=== PATIENT | female | born 1970 | race Caucasian/White ===

== ENCOUNTER → 2023-09-30 10:24 | Outpatient (CLI) | payer BC, SELFPAY ==
--- NOTE | 2023-09-30 10:25 | US_ITS ---
PROCEDURE: US TRANSVAGINAL CLINICAL INDICATION: Abnormal Bleeding COMPARISON: No exams were available for comparison FINDINGS: Transvaginal sonographic images of the pelvis were obtained. UTERUS: 8.4cm x 4.7cmx 4.1cm with a combined endometrial thickness of 7.1mm. Left subserosal fibroid measuring 0.9 cm x 1.4 cm x 0.8 cm. There are several small nabothian cysts in the cervix. LEFT OVARY: 1.8cmx1.6cmx1.4cm with a volume of 2.1ml. RIGHT OVARY: 1.8cmx 1.5cmx1.1cm with a volume of 1.5ml. Both ovaries are seen and appear normal. Doppler flow to both ovaries are seen. There is no fluid in the cul-de-sac. IMPRESSION: 1. Difficult examination. 2. Anteverted uterus normal in shape and size. The endometrium measures 7.1 mm. 3. There is a small 1.4 cm subserosal fibroid on the left side. 4. Both left and right ovaries are seen and appear normal. 5. No fluid in the cul-de-sac. Dictated by: Raymond Guardado MD 10/02/2023 08:52 Raymond Guardado MD in OV 10/02/2023 08:52
== END ==
PROVIDERS: PCP Family Medicine; Visit Provider Obstetrics & Gynecology
DX: N92.0 Excessive and frequent menstruation with regular cycle (principal); N94.6 Dysmenorrhea, unspecified
CPT/HCPCS: 76830

== ENCOUNTER 2023-10-31 09:24 | Outpatient (CLI) | payer BC, SELFPAY ==
[2023-10-31 09:46] LABS: Basophils # 0.1 K/mm3 (0-0.2); Basophils % 0.9 % (0.1-2.0); Eosinophils # 0.1 K/mm3 (0.0-0.4); Eosinophils % 1.8 % (0.1-12.0); Hematocrit 43.9 % (37.0-47.0); Hemoglobin 14.9 g/dL (12.2-16.2); Lymphocytes # 2.7 K/mm3 (0.7-4.5); Lymphocytes % 34.1 % (10-50); Mean Corpuscular Hemoglobin 29.7 pg (27.0-31.2); Mean Corpuscular Volume 87.2 fl (81-99); Mean Platelet Volume 7.6 fl (7.4-10.4); Monocytes # 0.5 K/mm3 (0.1-1.0); Monocytes % 5.8 % (1.7-9.3); Neutrophils # 4.6 K/mm3 (1.8-7.8); Neutrophils % 57.4 % (37.0-80.0); Platelet Count 265 K/mm3 (142-424); Red Blood Count 5.04 M/mm3 (4.20-5.40)
[2023-10-31 10:22] LABS: Alanine Aminotransferase 27 U/L (12-78); Albumin Level 4.6 g/dl (3.5-5.0); Albumin/Globulin Ratio 1.7 (1.1-1.8); Alkaline Phosphatase 37 U/L (38-126); Aspartate Amino Transferase 27 U/L (14-36); Bilirubin,Total 0.4 mg/dl (0.2-1.3); Blood Urea Nitrogen 15 mg/dl (7-17); Calcium 8.8 mg/dl (8.4-10.2); Carbon Dioxide 25 mmol/L (22.0-30.0); Chloride 106 mmol/L (98-107); Estimated Glomerular Filt Rate 76 ml/min (>60); GFR (African American) 92 ML/MIN (>60); Globulin 2.7 g/dL (1.3-3.2); Glucose 109 mg/dl (74-100); Sodium 140 mmol/L (136-145); Total Protein,Serum 7.3 g/dl (6.3-8.2)
== END 2023-10-31 23:59 ==
LOC: LAB 09:25
PROVIDERS: PCP Family Medicine; Visit Provider Obstetrics & Gynecology
DX: N93.9 Abnormal uterine and vaginal bleeding, unspecified (principal)
CPT/HCPCS: 36415; 80053; 85025

== ENCOUNTER 2023-11-03 06:02 | Day surgery (SDC) | payer BC, SELFPAY ==
[2023-10-31 13:21] VITALS: BMI 34.0
[2023-11-03] VITALS (9 sets, daily range): BP systolic 128–166; BP diastolic 78–94; PULSE 65–74; RESP 18–21; TEMP 36.2–36.8; O2SAT 92–100
[2023-11-03] MEDS: ACETAMINOPHEN 500MG TAB 1000 MG PO (06:35)
[2023-11-03] MEDS: LACTATED RINGERS 1000ML 1,000 ML 25 ML IV (06:35)
[2023-11-03 06:44] LABS: HCG Qualitative, Serum Negative (Negative)
--- NOTE | 2023-11-03 07:14 | P.PNANES_ITS ---
[facility] Disclaimer: The information contained in this section may have been updated after the patient was seen, as this information can be updated by other users. Medical History Abnormal uterine bleeding High cholesterol Severe dysmenorrhea NINA (stress urinary incontinence, female) Surgical History H/O section H/O LEEP History of salpingectomy History of tubal ligation Family History Other Cancer Diabetes Hyperlipidemia Hypertension Stroke Social History Smoking Status: Never smoker alcohol intake: never substance use type: denies use current occupational status: unemployed Travel in the last 8 weeks: None household members: spouse housing: house caffeine: Yes [facility] Anesthesia Checklist Patient Identification Patient Identification: Arm Band and Verbal (Name & ) Structural Data Admitted From: Home Planned Operative Procedure/s: D & C, hyst, Novasure Consent for Planned Operative Procedure(s) Verified: Yes NPO Status Verified Time NPO: 00:00 Additional verifications Anesthesia Reactions: No Hx Blood Transfusions: No Blood Transfusion Reaction: No Airway Assessment Mallampati Score:: Class III C-Spine Mobility Assessed: Yes TMJ Mobility Assessed: Yes Dentition: Good Dentition Neurological Assessment Level of Consciousness: Awake Hx Seizures: No Numbness or tingling in extremities: No Anesthesia Plan Anesthesia Risk discussed: Yes Anesthesia Plan: Verified ASA Class: II Anesthesia Type: General
--- NOTE | 2023-11-03 08:02 | EXP.ANES.I ---
[facility] Anesthesia Record Part I Anesthesia Record I Intake, IV Amount: 500 Hydration: Adequate Estimated blood loss (mL): 5 Urine output (mL): 25 Blood Pressure: 128/78 SaO2: 92 Pulse Rate: 65 Airway Patency: Patent Respiratory Rate: 21 Temperature: 98.3 F Patient is:: Drowsy and Oral/Nasal airway Stable to PACU at:: 08:00
--- NOTE | 2023-11-03 08:19 | P.OP_ITS ---
Date of procedure: 11/03/23 Pre-op Diagnosis:: 1. Abnormal uterine bleeding Post-op Diagnosis:: 1. Abnormal uterine bleeding Procedure performed:: Hysteroscopy, D&C, Novasure endometrial ablation Surgeon:: Helen Horne DO Manager Rehab(s):: N/a CARGO MATE:: Esperanza Dalton Anesthesia: GETA Estimated blood loss (mL): 5 Clinical Note:: Pricilla Carlin is a very pleasant 53 yo P2010 who presents for preop visit. She complains of abnormal uterine bleeding. She is currently taking combined OCP. She admits she stopped OCP in 2022 because she wanted to get off of hormones at age 53. However, she experienced heavy, prolonged bleeding and restarted OCP. She reports periods are regular on OCP. She admits hot flashes and night sweats are present but getting better. She is afraid to stop OCP because of heavy bleeding and quality of life. She has history of tubal ligation. Pelvic ultrasound 09/30/23 demonstrated anteverted uterus normal in shape and size. The endometrium measured 7.1 mm. A small 1.4 cm subserosal fibroid on the left side. Both left and right ovaries are seen and appear normal. No fluid in the cul-de-sac. Operative findings:: 1. On bimanual exam, uterus midposition, normal size and shape. No adnexal masses palpated 2. On hysteroscopic exam, bilateral tubal ostia easily visualized. Grossly normal appearing endometrial tissue. No masses or polyps. Operative note:: Risks, benefits and alternatives were discussed with the patient. Risks include but are not limited to bleeding, infection, uterine perforation and VTE. Patient voiced understanding and agreed to proceed. She was wheeled back to the operating room and placed under general anesthesia without difficulty. She was placed in dorsal lithotomy position and prepped and draped in the normal sterile fashion. A bimanual exam was performed. A weighted Auvard was placed in the vaginal vault. Single tooth tenaculum was placed on anterior lip of the cervix. Uterus sounded to 7. Sequential Larry dilators were used to dilate the cervical os. Hysteroscope was tested inserted through the cervix without difficulty. Endometrial cavity was evaluated. See findings above. Pictures were taken. Hysteroscope was removed. Medium size sharp curette was inserted through the cervix into the uterine cavity. The endometrial cavity was curetted with a systematic [id number] movement of the curette so that all possible endometrium was sampled. Endometrial curettings will be sent to pathology for review. Novasure sure sound was used to obtain uterine length. Uterus measured 4.0 cm in length and 4.5 cm in cavity width. Novasure deviced was inserted and ablation was performed per protocol at a power of 99 w for 88 seconds. Novasure device was removed. Hysteroscope was reinserted and cavity revealed adequate burn and no uterine perforation. Hysteroscope was removed. Instruments were removed from the vagina. Tenaculum site with small amount of oozing. Silver nitrate applied with continued oozing. 2-0 Chromic suture used to ligate tenaculum sites. Hemostasis noted. Patient was awaken from anesthesia without difficulty. She was transported to recovery room in stable condition. Patient will be discharged home when awake and ambulating. She was given postop instructions as well as instructions to follow-up in the office in 2 weeks at which time pathology will be reviewed. Condition: stable Disposition: same day Specimens:: 1. Endometrial curettings Complications:: None
--- NOTE | 2023-11-03 08:56 | SUR.PHASEI ---
removed patients oral airway @ 0810 pt tolerated well No bleeding noted vaginally.
--- NOTE | 2023-11-04 08:58 | P.PNANES_ITS ---
[facility] Anesthesia Record Part II Anesthesia Record Part II Discharge Time: 08:30 Destination: Surgical Day Care (OP Surgery) PACU nurse assessment reviewed?: Yes Patient Condition:: Good Anesthesia Complications:: None Swallowing reflex intact?: Yes Airway Patency: Patent Cyanosis?: No Blood Pressure: 157/80 SaO2: 97 Respiratory Rate: 18 Pulse Rate: 74 Temperature: 97.8 F Mental Status: Alert & Oriented Pain level:: 0 Nausea and/or vomitting:: None Intake, IV Amount: 0 Hydration: Adequate
[2023-11-04 08:59] VITALS: BP 157/80; PULSE 74; RESP 18; TEMP 36.6; O2SAT 97
== END 2023-11-03 09:01 | disposition home or self-care (01) ==
PROVIDERS: PCP Family Medicine; Visit Provider Obstetrics & Gynecology
PROC: (CPT 58563; principal; 2023-11-03 07:30)
DX: N93.9 Abnormal uterine and vaginal bleeding, unspecified (principal); Z98.51 Tubal ligation status; N84.0 Polyp of corpus uteri
CPT/HCPCS: 58563; 84703; J2405

== ENCOUNTER 2025-04-12 09:38 | Outpatient (CLI) | payer BC, SELFPAY ==
--- OUTSIDE RECORDS SUMMARY | 2025-02-25 12:29 | XMS_ITS | Encounter Summary ---
Author Organization [place] [address] Care Team Providers Care Manager Division Name Role Phone Corrie Rodriguez MD Unavailable Traci Camacho DO Primary Care Provider + [phone] Reason for Visit * Reason Comments Abdominal Pain RLQ abd pain. Interm ittent. +diarrhea Radiates down to groin area. Moves. Increased urinary frequency. Encounter Details Date Type Department Care Team (Late st Contact Info) Description 02/25/2025 12:29 PM EDT - 02/25/2025 1:47 PM EDT Emergency [facility] Emergency [address] [place] [id number] Aakash Altman MD [address] [place] [id number] Acute cystitis without hematuria (Primary Dx); Loose stools Discharge Disposition: Home or Self Care Social History Tobacco Use Types Packs/Day Years Used Date Smoking Tobacco: Never Smokeless Tobacco: Never Alcohol Use Standard Drinks/Week Comments No 0 (1 standard drink = 0.6 oz pur e alcohol) PHQ-2 Answer Date Recorded PHQ-2 Total Score 0 01/23/2025 Sexually Active Control Partners Comments Yes OCP Male Comments No Sex and Gender Information Value Date Recorded Sex Assigned at Not on file Legal Sex Female 1:03 PM EDT Gender Identity Not on file Sexual Orientation Not on file documented as of this encounter Last Filed Vital Signs Vital Sign Reading Time Taken Comments Blood Pressure 127/60 02/25/2025 12:20 PM EDT Pulse 74 02/25/2025 12:20 PM EDT Temperature 36.6 C (97.9 F) 02/25/2025 12:20 PM EDT Respiratory Rate 18 02/25/2025 12:20 PM EDT Oxygen Saturation 99% 02/25/2025 12:20 PM EDT Inhaled Oxygen Concentration - - Weight - - Height - - Body Mass Index - - documented in this encounter Functional Status * Is the person deaf or does he/she have serious difficulty hearing? Answer Date of Assessment Author No 01/02/2021 8:07 AM EDT Doris Shafer RMA * Is the person blind or does he/she have serious difficulty seeing even when wearing glasses? Answer Date of Assessment Author No 01/02/2021 8:07 AM EDT Doris Shafer RMA * Does this person have serious difficulty walking or climbing stairs? Answer Date of Assessment Author No 01/02/2021 8:07 AM EDT Doris Shafer RMA * Does this person have difficulty dressing or bathing? Answer Date of Assessment Author No 01/02/2021 8:07 AM EDT Doris Shafer RMA * Because of a physical, mental or emotional condition, does this person have difficulty doing errands alone such as visiting a doctor's office or shopping? Answer Date of Assessment Author No 01/02/2021 8:07 AM EDT Doris Shafer RMA * Suicide Severity Rating Answer Date of Assessment Author No Risk 02/25/2025 12:22 PM EDT Oni Ovalle RN * [place] Suicide Severity Rating Scale (Q shift for moderate and high) Question Answer Date of Assessment Author 1. In the past month, have y ou wished you were or wished you could go to sleep and not wake up? 0 02/25/2025 12:22 PM EDT Ana Maria Ovalle RN 2. In the past month, have y ou actually had any thoughts of killing yourself? (If no, skip to question 6) 0 02/25/2025 12:22 PM EDT Ana Maria Ovalle RN 6. Have you ever done anything, started to do anything, or prepared to do anything to end your life? 0 02/25/2025 12:22 PM EDT Tricia Ovalle RN documented as of this encounter Mental Status * Because of a physical, mental or emotional condition, does this person have serious difficulty concentrating, remembering or making decisions? Answer Entry Date Author No 01/02/2021 8:07 AM EDT Doris Shafer RMA documented in this encounter Discharge Instructions * Discharge Instructions* Aakash Altman MD - 02/25/2025 1:36 PM EDT Take plenty of fluid Take all antibiotics as prescribed Contact your primary care physician or referral physician for follow up in 2-3 days. Return for reevaluation if persistent fever, vomiting or worsening of symptoms documented in this encounter Medications at Time of Discharge CALCIUM-VITAMIN D3 ORALIndications:Radha min D deficiency Take 1 Tab by mouth daily. cetirizine (ZYRTEC) 10 mg Oral Tablet Take 10 mg by mouth daily. cyanocobalamin 1,000 mcg Oral Tablet Take 1,000 mcg by mouth daily. nitrofurantoin, macrocrystal-monohyd rate, (MACROBID) 100 mg Oral Capsule Take 1 Capsule by mouth 2 times daily for 5 days. 10 Capsule 02/25/2025 5 rosuvastatin (CRESTOR) 5 mg Oral TabletIndications:Hy perlipidemia, unspecified hyperlipidemia type,Hyperlipidemia with target LDL less than 100 TAKE 1 TABLET BY MOUTH EVERY DAY AT NIGHT 100 Tablet 12/12/2024 5 documented as of this encounter Ordered Prescriptions Prescription Sig Dispense Quantity Refills Last Filled Start Date End Date nitrofurantoin, macrocrystal-monoh ydrate, (MACROBID) 100 mg Oral Capsule Take 1 Capsule by mouth 2 times daily for 5 days. 10 Capsule 02/25/2025 5 documented in this encounter Discharge Disposition Disposition Code Departure Means Destination Comment s Home or Self Half-Way documented in this encounter ED Notes * Aakash Altman MD - 02/25/2025 12:19 PM EDT Chief Complaint Patient presents with Abdominal Pain RLQ abd pain. Intermittent. +diarrhea Radiates down to groin area. Moves. Increased urinary frequency. The patient is a 54-year-old female who presents complaining of right lower quadrant abdominal pain. The pain has been intermittent for the last 3 days. She has had loose stool for the last 3 days aswell. She denies having nausea, vomiting or dysuria. She has had a bilateral tubal ligation and removal of one of her tubes and ovaries due to ectopic . She has had an ablation and does not menstruate. She denies a history of kidney stones, but is concerned she might be passing 1 based on her symptoms. She states that Tylenol improves her pain until it wears off and then the pain recurs. Patient History No Known Allergies Home Medications: Prior to Admission medications Medication Sig Start Date End Date Taking? Authorizing Provider CALCIUM-VITAMIN D3 ORAL Take 1 Tab by mouth daily. Provider, Historical cetirizine (ZYRTEC) 10 mg Oral Tablet Take 10 mg by mouth daily. Provider, Historical cyanocobalamin 1,000 mcg Oral Tablet Take 1,000 mcg by mouth daily. Provider, Historical rosuvastatin (CRESTOR) 5 mg Oral Tablet TAKE 1 TABLET BY MOUTH EVERY DAY AT NIGHT 12/12/24 Traci Miramontes, DO Past Medical History: Past Medical History: Diagnosis Date History of tubal ligation 01/19/2024 Tendonitis of shoulder, left Social History: reports that she has never smoked. She has never used smokeless tobacco. She reports being sexually active and has had partner(s) who are male. She reports using the following method of control/protection: OCP. She reports that she does not drink alcohol and does not use drugs. E-Cigarettes (such as Vapes or Juul) Family History: Family History Problem Relation Age of Onset Diabetes Mother Stroke Mother 61 High Cholesterol Mother High Blood Pressure Mother Cancer Father leukemia High Cholesterol Father Hypertension Father Heart Abnormality Father enlarged heart No Known Problems Sister Diabetes Paternal Grandmother Diabetes Maternal Aunt Diabetes Maternal Uncle Surgical History: Past Surgical History: Procedure Laterality Date SECTION 2007 ECTOPIC SURGERY LEE 1999 Review of Systems Review of Systems All other systems reviewed and are negative. Physical Exam Blood pressure 127/60, pulse 74, temperature 97.9 ??F (36.6 ??C), temperature source Oral, resp. rate 18, SpO2 99%, not currently . Physical Exam Vitals and nursing note reviewed. Constitutional: General: She is not in acute distress. Appearance: She is well-developed. HENT: Head: Normocephalic and atraumatic. Eyes: Conjunctiva/sclera: Conjunctivae normal. Pupils: Pupils are equal, round, and reactive to light. Cardiovascular: Rate and Rhythm: Normal rate and regular rhythm. Heart sounds: No murmur heard. No friction rub. No gallop. Pulmonary: Effort: Pulmonary effort is normal. Breath sounds: Normal breath sounds. Abdominal: General: Bowel sounds are normal. Comments: Abdomen is soft and she localizes pain to the right lower quadrant, but does not seem to have tenderness nor any guarding. Back without CVA tenderness. Musculoskeletal: Cervical back: Normal range of motion and neck supple. Lymphadenopathy: Cervical: No cervical adenopathy. Skin: General: Skin is warm and dry. Findings: No rash. Neurological: General: No focal deficit present. Mental Status: She is alert. Psychiatric: Mood and Affect: Mood normal. Procedures Radiology/EKG/Labs: Results for orders placed or performed during the hospital encounter of 02/25/25 CT ABDOMEN PELVIS WO ORAL OR IV CONTRAST Narrative CT ABDOMEN AND PELVIS WITHOUT IV OR ORAL CONTRAST, 02/25/2025 1:18 PM CLINICAL HISTORY: -Right lower quadrant pain. COMPARISON: 2014 PROCEDURE COMMENTS: Multidetector CT examination of the abdomen and pelvis without IV or oral contrast per protocol. Multiplanar reconstructions. Dose 1 : CT DLP Total : 850.54 mGycm DLP Spiral Max : 846.3 mGycm Maximum CTDI Vol : 17.07 mGy SSDE : 13.656 mGy SSDE Diameter : 41.6 cm SSDE Source : Lat FINDINGS: The lung bases are clear. The liver is steatotic. No focal abnormality. The gallbladder, pancreas, spleen and adrenals are grossly normal in noncontrast appearance. Renal parenchyma is grossly normal. No renal stones or obstruction. No definite ureteral stone. The bladder is mildly distended, grossly normal. The small and large bowel are normal in caliber without obstruction or wall thickening. Appendix is normal lower lower quadrant. No free fluid or suspicious lymphadenopathy. No suspicious osseous lesion. Impression No acute findings in the abdomen/pelvis. - Note: Radiology results need to be interpreted within a comprehensive clinical context. If you have questions about the radiology report, please contact the office of the ordering clinician. HUMAN CHORIONIC GONADOTROPIN QUANTITATIVE Result Value Ref Range Hcg Quant <1 <5 mIU/mL Narrative Female (non-): 0-4.9 mIU/mL Female (postmenopausal): 0-8.1 mIU/mL Indeterminate values for (e.g., 5-25 mIU/mL) may be confirmed with a repeat test in 48-72hours. Values in should double every 2-3 days for the first six weeks. Ingestion of radha doses of biotin (>5 mg/day) taken within 8 hours of drawing blood sample can interfere with this immunoassay test. UA W/REFLEX TO CULTURE Specimen: Urine, Clean Catch Narrative The following orders were created for panel order UA W/REFLEX TO CULTURE. Procedure Abnormality Status --------- ------ URINALYSIS REFLEX[[id number]] Abnormal Final result EXTRA HENLEY URINE CX[[id number]] Final result Please view results for these tests on the individual orders. CBC WITH DIFF Result Value Ref Range WBC 10.6 (H) 3.7 - 10.3 x10(3)/mcL RBC 4.96 3.90 - 5.20 x10(6)/mcL Hgb 14.4 11.2 - 15.7 g/dL Hct 42.9 34.0 - 45.0 % MCV 86.5 80.0 - 100.0 fL MCH 29.0 26.0 - 34.0 pg MCHC 33.6 30.7 - 35.5 g/dL RDW 12.7 <=14.9 % Platelet 256 155 - 369 x10(3)/mcL MPV 9.1 8.8 - 12.5 fL Neut Percent 58.0 % Imm Gran% 0.6 % Lymph Percent 29.2 % [place] Percent 8.9 % Eos Percent 2.4 % Baso Percent 0.9 % Neut # 6.2 (H) 1.6 - 6.1 x10(3)/mcL IMMGRAN# 0.1 0.0 - 0.1 x10(3)/mcL Lymph # 3.1 1.2 - 3.9 x10(3)/mcL [place] # 0.9 0.3 - 0.9 x10(3)/mcL Eos# 0.3 0.0 - 0.5 x10(3)/mcL Baso # 0.1 0.0 - 0.1 x10(3)/mcL COMPREHENSIVE METABOLIC PANEL Result Value Ref Range Sodium 140 136 - 145 mmol/L Potassium 4.0 3.5 - 5.0 mmol/L Chloride 105 98 - 107 mmol/L Total CO2 24 22 - 29 mmol/L Anion Gap 11 7 - 16 mmol/L Calcium 9.7 8.6 - 10.4 mg/dL Glucose Lvl 89 70 - 99 mg/dL BUN 13 6 - 20 mg/dL Creatinine 0.66 0.51 - 1.30 mg/dL Albumin 4.7 3.5 - 5.2 gm/dL Total Protein 7.4 6.4 - 8.3 gm/dL Bili Total 0.4 0.2 - 1.3 mg/dL ALT 31 <=41 U/L AST 23 <=40 U/L Alk Phos 55 36 - 123 U/L eGFR (CKD-EPIcr 2020) 105 >=60 mL/min/1.73 m2 URINALYSIS REFLEX Result Value Ref Range UA Color Yellow UA Appear Clear Clear UA Glucose Negative Negative mg/dL UA Ketones Negative Negative mg/dL UA Blood Negative Negative UA pH 6.5 5.0 - 8.0 pH UA Protein Negative Negative mg/dL UA Urobilinogen 0.2 <=1 mg/dL UA Bili Negative Negative UA Nitrite Negative Negative UA Leuk Est Moderate (A) Negative UA Spec Grav <=1.005 1.001 - 1.035 no units UA WBC 10 (H) 0 - 4 /HPF UA Squam Epi 1+ /LPF UA Bacteria Trace (A) Negative /HPF ED Course: Appropriate laboratory and radiology studies reviewed Patient presents complaining of intermittent right lower quadrant abdominal pain. She has urinary frequency which is unchanged from baseline. She was offered medications for pain, but declined. The patient's white blood count is slightly elevated. Urinalysis shows signs of infection. CT scan of the abdomen pelvis did not show ureteral calculi or any other etiology for her abdominal pain. Comprehensive metabolic panel is normal. Patient was treated with Macrobid for her urinary tract infection. Her pain could also be secondaryto the loose stool that she is having. She was told return if she develops worsening symptoms. ED Clinical Impression: 1. Acute cystitis without hematuria 2. Loose stools Critical Care time MDM Medical Decision Making Amount and/or Complexity of Data Reviewed Labs: ordered. Radiology: ordered. Condition at Discharge/Transfer from Department: Stable This chart was completed using voice recognition technology and may contain unintended errors Aakash Altman MD 02/25/25 1512 documented in this encounter Plan of Treatment Not on file documented as of this encounter Goals Goal Patient Goal Type Associated Problems Recent Progress Patient-Stated? 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 RN documented as of this encounter Procedures Procedure Name Priority Date/Time Associated Diagnosis Comments CT ABDOMEN PELVIS WO ORAL OR IV CONTRAST STAT 02/25/2025 1:18 PM EDT CBC WITH DIFF STAT 02/25/2025 12:45 PM EDT HUMAN CHORIONIC GONADOTROPIN QUANTITATIVE STAT 02/25/2025 12:45 PM EDT COMPREHENSIVE METABOLIC PANEL STAT 02/25/2025 12:45 PM EDT URINALYSIS REFLEX STAT 02/25/2025 12: 31 PM EDT UA W/REFLEX TO CULTURE STAT 12:31 PM EDT EXTRA HENLEY URINE CX STAT 02/25/2025 1 2:31 PM EDT URINE CULTURE (NO STAIN) STAT 02/25/2025 12:31 PM EDT documented in this encounter Results * CT ABDOMEN PELVIS WO ORAL OR IV CONTRAST (02/25/2025 1:18 PM EDT) Anatomical Region Laterality Modality Abdomen, Pelvis Computed Tomogra phy 02/25/2025 1:18 PM EDT Impressions 02/25/2025 1:31 PM EDT No acute findings in the abdomen/pelvis. - Note: Radiology results need to be interpreted within a comprehensive clinical context. If you have questions about the radiology report, please contact the office of the ordering clinician. Narrative 02/25/2025 1:[address] ABDOMEN AND PELVIS WITHOUT IV OR ORAL CONTRAST, 02/25/2025 1:18 PM CLINICAL HISTORY: -Right lower quadrant pain. COMPARISON: 2014 PROCEDURE COMMENTS: Multidetector CT examination of the abdomen and pelvis without IV or oral contrast per protocol. Multiplanar reconstructions. Dose 1 : CT DLP Total : 850.54 mGycm DLP Spiral Max : 846.3 mGycm Maximum CTDI Vol : 17.07 mGy SSDE : 13.656 mGy SSDE Diameter : 41.6 cm SSDE Source : Lat FINDINGS: The lung bases are clear. The liver is steatotic. No focal abnormality. The gallbladder, pancreas, spleen and adrenals are grossly normal in noncontrast appearance. Renal parenchyma is grossly normal. No renal stones or obstruction. No definite ureteral stone. The bladder is mildly distended, grossly normal. The small and large bowel are normal in caliber without obstruction or wall thickening. Appendix is normal lower lower quadrant. No free fluid or suspicious lymphadenopathy. No suspicious osseous lesion. Procedure Note Wilver Barron MD - 02/25/2025 CT ABDOMEN AND PELVIS WITHOUT IV OR ORAL CONTRAST, 02/25/2025 1:18 PM CLINICAL HISTORY: -Right lower quadrant pain. COMPARISON: 2014 PROCEDURE COMMENTS: Multidetector CT examination of the abdomen andpelvis without IV or oral contrast per protocol. Multiplanar reconstructions. Dose 1 : CT DLP Total : 850.54 mGycm DLP Spiral Max : 846.3 mGycm Maximum CTDI Vol : 17.07 mGy SSDE : 13.656 mGy SSDE Diameter : 41.6 cm SSDE Source : Lat FINDINGS: The lung bases are clear. The liver is steatotic. No focal abnormality. The gallbladder, pancreas,spleen and adrenals are grossly normal in noncontrast appearance. Renal parenchyma is grossly normal. No renal stones or obstruction. Nodefinite ureteral stone. The bladder is mildly distended, grossly normal. The small and large bowel are normal in caliber without obstruction orwall thickening. Appendix is normal lower lower quadrant. No free fluid or suspicious lymphadenopathy. No suspicious osseous lesion. IMPRESSION: No acute findings in the abdomen/pelvis. - Note: Radiology results need to be interpreted within a comprehensiveclinical context. If you have questions about the radiology report, please contactthe office of the ordering clinician. Aakash Altman MD IMG CT ORDERABLES Final Result * COMPREHENSIVE METABOLIC PANEL (02/25/2025 12:45 PM EDT) Sodium 140 136 - 145 mmol/L 02/25/2025 1:07 PM EDT [facility] Potassium 4.0 3.5 - 5.0 mmol/L 02/25/2025 1:07 PM EDT [facility] Chloride 105 98 - 107 mmol/L 02/25/2025 1:07 PM EDT [facility] Total CO2 24 22 - 29 mmol/L 02/25/2025 1:07 PM T [facility] Anion Gap 11 7 - 16 mmol/L 02/25/2025 1:07 PM [facility] Calcium 9.7 8.6 - 10.4 mg/dL 02/25/2025 1:07 PM T [facility] Glucose Lvl 89 70 - 99 mg/dL 02/25/2025 1:07 PM EDT [facility] BUN 13 6 - 20 mg/dL 02/25/2025 1:07 PM [facility] Creatinine 0.66 0.51 - 1.30 mg/dL 02/25/2025 1:07 PM [facility] Albumin 4.7 3.5 - 5.2 gm/dL 02/25/2025 1:07 PM T [facility] Total Protein 7.4 6.4 - 8.3 gm/dL 02/25/2025 1:07 PM EDT [facility] Bili Total 0.4 0.2 - 1.3 mg/dL 02/25/2025 1:07 PM EDT [facility] ALT 31 <=41 U/L 02/25/2025 1:07 PM EDT [facility] AST 23 <=40 U/L 02/25/2025 1:07 PM EDT [facility] Alk Phos 55 36 - 123 U/L 02/25/2025 1:07 PM EDT [facility] eGFR (CKD-EPIcr 2020) 105 >=60 mL/min/1.7 3 m2 02/25/2025 1:07 PM EDT [facility] Comment:Estimated GFR was ca lculated using the CKD-EPIcr (2020) equation refit without race. The equation is recommended by the National Kid[employer] - [place] [employer] Nephrology Task Force. Blood VENOUS BLOOD / Unknown Venipuncture / Unknown 02/25/2025 12:45 PM EDT 02/25/2025 12:50 PM EDT us Aakash Altman MD CHEMISTRY ORDERABLES Final Resu lt [facility] [address] [place] [address] * (ABNORMAL) CBC WITH DIFF (02/25/2025 12:45 PM EDT) WBC 10.6(H) 3.7 - 10.3 x10(3)/mcL 02/25/2025 12:52 PM EDT [facility] RBC 4.96 3.90 - 5.20 x10(6)/mcL 02/25/2025 12:52 PM EDT [facility] Hgb 14.4 11.2 - 15.7 g/dL 02/25/2025 12:52 PM EDT [facility] Hct 42.9 34.0 - 45.0 % 02/25/2025 12:52 PM EDT [facility] MCV 86.5 80.0 - 100.0 fL 02/25/2025 12:52 PM EDT [facility] MCH 29.0 26.0 - 34.0 pg 02/25/2025 12:52 PM EDT [facility] MCHC 33.6 30.7 - 35.5 g/dL 02/25/2025 12:52 PM EDT [facility] RDW 12.7 <=14.9 % 02/25/2025 12:52 PM EDT [facility] Platelet 256 155 - 369 x10(3)/mcL 02/25/2025 12:52 PM EDT [facility] MPV 9.1 8.8 - 12.5 fL 02/25/2025 12:52 PM EDT [facility] Neut Percent 58.0 % 02/25/2025 12:52 PM EDT [facility] Comment:Neutrophils equals s egs plus bands Imm Gran% 0.6 % 02/25/2025 12:52 PM EDT [facility] Comment:Automated count of m etamyelocytes, myelocytes and promyelocytes. Lymph Percent 29.2 % 02/25/2025 12:52 PM EDT [facility] [place] Percent 8.9 % 02/25/2025 12:52 PM EDT [facility] Eos Percent 2.4 % 02/25/2025 12:52 PM EDT [facility] Baso Percent 0.9 % 02/25/2025 12:52 PM EDT [facility] Neut # 6.2(H) 1.6 - 6.1 x10(3)/[facility] 02/25/2025 12:52 PM EDT [facility] Comment:Neutrophils equals s egs plus bands IMMGRAN# 0.1 0.0 - 0.1 x10(3)/[facility] 02/25/2025 12:52 PM [facility] Comment:Automated count of m etamyelocytes, myelocytes and promyelocytes. An absolute IG <0.1 is reported as 0.0. Lymph # 3.1 1.2 - 3.9 x10(3)/[facility] 02/25/2025 12:52 PM EDT [facility] [place] # 0.9 0.3 - 0.9 x10(3)/[facility] 02/25[facility]2025 12:[facility] Eos# 0.3 0.0 - 0.5 x10(3)/[facility] 02/25/2025 12:52 PM [facility] Baso # 0.1 0.0 - 0.1 x10(3)/[facility] 02/25/2025 12:52 [facility] Blood VENOUS BLOOD / Unknown Venipuncture / Unknown 02/25/2025 12:45 PM EDT 02/25/2025 12:50 PM EDT Aakash Altman MD HEMATOLOGY ORDERABLES Final Res ult Performing Organization Address [facility] de Phone Number [facility] [address] [place] [id number] * HUMAN CHORIONIC GONADOTROPIN QUANTITATIVE (02/25/2025 12:45 PM EDT) Hcg Quant <1 <5 mIU/mL 02/25/2025 1:07 PM EDT [facility] Blood VENOUS BLOOD / Unknown Venipuncture / Unknown 02/25/2025 12:45 PM EDT 02/25/2025 12:50 PM EDT Narrative [facility] - 02/25/2025 1:07 PM EDT Female (non-): 0-4.9 mIU/mL Female (postmenopausal): 0-8.1 mIU/mL Indeterminate values for (e.g., 5-25 mIU/mL) may be confirmed with a repeat test in 48-72 hours. Values in should double every 2-3 days for the first six weeks. Ingestion of radha doses of biotin (>5 mg/day) taken within 8 hours of drawing blood sample can interfere with this immunoassay test. us Aakash Altman MD CHEMISTRY ORDERABLES Final Resu lt Performing Organization Address [facility] de Phone Number [facility] [address] [place] [address] * URINE CULTURE (NO STAIN) (02/25/2025 12:31 PM EDT) Pathologist [facility] Culture Multiple bacterial species isolated from urine consistent with urogenital commensal organisms. 02/27/2025 4:17 AM EDT [facility] Urine STRUCTURE OF URINARY TRACT PROPER / Unknown 02/25/2025 12:31 PM EDT 02/25/2025 12:44 PM EDT us Aakash Altman MD MICROBIOLOGY - GENERAL ORDERABL ES Final Result [facility]REFERRED [facility] [address] [facility] , [place] [address] * EXTRA HENLEY URINE CX (02/25/2025 12:31 PM EDT) Urine STRUCTURE OF URINARY TRACT PROPER / Unknown 02/25/2025 12:31 PM EDT 02/25/2025 12:35 PM EDT Aakash Altman MD MICROBIOLOGY - GENERAL ORDERABL ES Final Result Performing Organization Address [facility]/ZIP Co de Phone Number [address] [address] * (ABNORMAL) URINALYSIS REFLEX (02/25/2025 12:31 PM EDT) UA Color Yellow 02/25/2025 12:44 PM EDT [facility] UA Appear Clear Clear 02/25/2025 12:44 PM EDT [facility] UA Glucose Negative Negative mg/dL 02/25/2025 12:44 PM EDT [facility] UA Ketones Negative Negative mg/dL 02/25/2025 12:44 PM EDT [facility] UA Blood Negative Negative 02/25/2025 12:44 PM EDT [facility] UA pH 6.5 5.0 - 8.0 pH 02/25/2025 12:44 PM EDT [facility] UA Protein Negative Negative mg/dL 02/25/2025 12:44 PM EDT [facility] UA Urobilinogen 0.2 <=1 mg/dL 12:44 PM EDT [facility] UA Bili Negative Negative 02/25/2025 12:44 PM EDT [facility] UA Nitrite Negative Negative 02/25/2025 12:44 PM EDT [facility] UA Leuk Est Moderate(A) Negative 02/25/2025 12:44 PM EDT [facility] UA Spec Grav <=1.005 1.001 - 1.035 no units 02/25/2025 12:44 PM EDT [facility] Comment:Reference range meghan d for random specimens only. UA WBC 10(H) 0 - 4 /HPF 02/25/2025 12:44 PM EDT [facility] UA Squam Epi 1+ /LPF 02/25/2025 12:44 PM EDT [facility] UA Bacteria Trace(A) Negative /HPF 02/25/2025 12:44 PM EDT [facility] Urine STRUCTURE OF URINARY TRACT PROPER / Unknown 02/25/2025 12:31 PM EDT 02/25/2025 12:35 PM EDT Aakash Altman MD URINE ORDERABLES Final Result [facility] [address] [place] [address] documented in this encounter Visit Diagnoses Diagnosis Acute cystitis without hematuria- Primary Acute cystitis Loose stools Abnormal feces documented in this encounter Care Teams Manager Division Relationship Specialty Start Date End Date Traci Miramontes [place] [address] PCP - General Family Medicine 12/21/23 Corrie Rodriguez MD Consulting Physician Obstetrics & Gynecology 01/09/20 documented as of this encounter
--- OUTSIDE RECORDS SUMMARY | 2025-04-12 09:41 | XMS_ITS | Encounter Summary ---
Author Organization [facility] [place] [address] Care Team Providers Care Fiberglass Model Maker Name Role Phone Corrie Rodriguez MD, Danielle R DO Primary Care Provider [phone] Encounter Details Date Type Department Care Team (Latest Contact Info) Description 02/25/2025 Travel Social History Tobacco Use Types Packs/Day Years [...] on file documented as of this encounter Functional Status * Is the person deaf or does he/she have serious difficulty hearing? Answer Date of Assessment Author No 01/02/2021 8:07 AM Doris Brown RMA * Is the person blind or does he/she have serious difficulty seeing even when wearing glasses? Answer Date of Assessment Author No 01/02/2021 8:07 AM Doris Brown RMA * Does this person have serious difficulty walking or climbing stairs? Answer Date of Assessment Author No 01/02/2021 8:07 AM Doris Brown RMA * Does this person have difficulty dressing or bathing? Answer Date of Assessment Author No 01/02/2021 8:07 AM Doris Brown RMA * Because of a physical, mental or emotional condition, does this person have difficulty doing errands alone such as visiting a doctor's office or shopping? Answer Date of Assessment Author No 01/02/2021 8:07 AM Doris Brown RMA * Suicide Severity Rating Answer Date of Assessment Author No Risk 02/25/2025 12:22 PM Oni Sommers RN * [place] Suicide Severity Rating Scale (Q shift for moderate and high) Question Answer Date of Assessment Author 1. In the past month, have y ou wished you were or wished you could go to sleep and not wake up? 0 02/25/2025 12:22 PM PENNYT Ana Maria Ovalle RN 2. In the past month, have y ou actually had any thoughts of killing yourself? (If no, skip to question 6) 0 02/25/2025 12:22 PM Ana Maria Sommers RN 6. Have you ever done anything, started to do anything, or prepared to do anything to end your life? 0 02/25/2025 12:22 PM EDTricia Bates RN documented as of this encounter Mental Status * Because of a physical, mental or emotional condition, does this person have serious difficulty concentrating, remembering or making decisions? Answer Entry Date Author No 01/02/2021 8:07 AM Doris Brown RMA documented in this encounter Plan of Treatment Not on file documented as of this encounter Goals Goal Patient Goal Type Associated Problems Recent Progress Patient-Stated? 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 RN documented as of this encounter Visit Diagnoses Not on filedocumented in this encounter Care Teams Fiberglass Model Maker Relationship Specialty Start Date End Date Traci Miramontes DO [facility] [place] [address] PCP - General Family Medicine 12/21/23 Corrie Rodriguez MD Consulting Physician Obstetrics & Gynecology 01/09/20 documented as of this encounter
--- OUTSIDE RECORDS SUMMARY | 2025-04-12 09:41 | XMS_ITS | Encounter Summary ---
Author Organization [facility] [address] Care Team Providers Care Program Support Assistant Name Role Phone Corrie Rodriguez MD Unavailable [facility] Traci Miramontes DO Primary Care Provider [phone] Encounter Details Date Type Department Care Team (Late st Contact Info) Description 02/21/2025 Abstract [facility] [address] [place] [address] Traci Miramontes DO [address] [place] [phone] Social History Tobacco Use Types Packs/Day Years [...] of Assessment Author No 01/02/2021 8:07 AM PENNYT Doris Shafer RMA * Does this person [...] 01/02/2021 8:07 AM Doris Brown RMA documented as of this encounter Mental Status [...] Procedure Name Priority Date/Time Associated Diagnosis Comments HPV Routine 02/19/2025 PAP SMEAR Routine 02/19/2025 documented in this encounter Results * HM PAP SMEAR (02/19/2025) Pap Negative for intraephithelial lesion or malignancy Negative for intraephithelial lesion or malignancy, Other SEP OFFICE 02/19/2025 Historical Provider HEALTH MAINTENANCE Final Res ult Performing Organization Address [facility] Co de Phone Number SEP OFFICE * HM HPV (02/19/2025) HPV DNA None Detected None Detected SEP OFFICE 02/19/2025 [facility] Provider HEALTH MAINTENANCE Final Res ult SEP OFFICE documented in this encounter Visit Diagnoses Not on filedocumented in this encounter Care Teams Program Support Assistant Relationship Specialty Start Date End Date Traci Miramontes DO [address] [place] [address] PCP - General Family Medicine 12/21/23 Corrie Rodriguez MD Consulting Physician Obstetrics & Gynecology 01/09/20 documented as of this encounter
--- OUTSIDE RECORDS SUMMARY | 2025-04-12 09:41 | XMS_ITS | Clinical Summary ---
Author Organization [facility] Address [address] [place] [address] Phone Care Team Providers Care Hot Dip Galvanizer Name Role Phone Corrie Rodriguez MD Unavailable Traci Camacho DO Primary Care Provider [phone] Allergies No known active allergies Medications cetirizine (ZYRTEC) 10 mg Oral Tablet Take 10 mg by mouth daily. Active CALCIUM-VITAMIN D3 ORALIndications:Vit vallejo D deficiency Take 1 Tab by mouth daily. Active cyanocobalamin 1,000 mcg Oral Tablet Take 1,000 mcg by mouth daily. Active rosuvastatin (CRESTOR) 5 mg Oral TabletIndications:H yperlipidemia, unspecified hyperlipidemia type,Hyperlipidemia with target LDL less than 100 TAKE 1 TABLET BY MOUTH EVERY DAY AT NIGHT 100 Tablet 2 5 Active Hospital, Clinic, or Other Facility Administered Medication Ordered Dose Route Frequency Start Date End Date Status cyanocobalamin injection 1,000 mcgIndications:Other vitamin B12 deficiency anemia 1000 mcg IM EVERY 30 DAYS 01/14/2022 Active Active Problems Problem Noted Date Diagnosed Date H/O LEEP 01/19/2024 Vitamin D deficiency 01/11/2023 Assessment & Plan (01/23/2025 9:24 AM EDT): Orders: VITAMIN D 25 HYDROXY; Future Prediabetes 01/11/2023 Assessment & Plan (01/23/2025 9:24 AM EDT): Orders: HEMOGLOBIN A1C; Future Anemia due to vitamin B12 deficiency 01/14/2022 Assessment & Plan (01/23/2025 9:24 AM EDT): Orders: VITAMIN B12/ FOLIC ACID; Future Class 1 obesity due to exces s calories without serious comorbidity with body mass index (BMI) of 33.0 to 33.9 in adult 01/04/2022 Assessment & Plan (01/04/2022 8:53 AM EDT): Counseled on diet and exercise. Declined to make specific goal. Continuing with riding stationary bike 3 times a week in same routine - counseled against this and recommended variety in routine. Gastroesophageal reflux disease without esophagi tis 12/16/2017 Assessment & Plan (12/16/2017 10:13 AM EST): stable Environmental allergies 12/16/2017 Assessment & Plan (12/16/2017 10:13 AM EST): Stable, refill Hyperlipidemia with target LDL less than 100 05/2017 Assessment & Plan (01/23/2025 9:24 AM EDT): Continue statin Orders: LIPID PANEL REFLEX; Future Assessment & Plan (12/16/2017 10:13 AM EST): Stable, cont med and diet Resolved Problems Problem Noted Date Diagnosed Date Resolved Date ASCUS of cervix with negative high risk HPV 01/19/2024 01/23/2025 History of tubal ligation 01/19/2024 Hepatitis B vaccination declined 01/11/2023 01/19/2024 Obesity, Class I, BMI 30-34.9 01/11/2023 01/23/2025 Colonoscopy refused 01/04/2022 01/24/20 25 Overview (01/04/2022): Refused all types of colon cancer screening COVID-19 vaccination declined 01/04/2022 01/19/2024 Encounter for contraceptive management 12/16/2015 01/19/2024 Assessment & Plan (12/16/2017 10:13 AM EST): refill Encounters Date Type Department Care Team Description 03/06/[address] [place] [phone] Traci Miramontes, DO Medication Refill 02/25/2025 12:29 PM EDT - 02/25/2025 1:47 PM EDT Emergency [facility] [address] [place] [address] Aakash Altman MD Acute cystitis without hematuria (Primary Dx); Loose stools Discharge Disposition: Home or Self Care 02/25/2025 Travel 02/25/[address] [place] [phone] Traci Miramontes, Appointment Needed (on and off pain in lower right side x 2 days/ no bal) 02/21/[address] [place] [phone] Traci Miramontes, 02/01/2025 Results Follow-Up [address] [place] [phone] Alexus Cazares MA LIPID PANEL REFLEX, HEMOGLOBIN A1C, CBC WITH DIFF, Additional followed-up results: 4 01/23/2025 9:00 AM EDT Office Visit [address] [place] [address] Traci Miramontes, Annual physical exam (Primary Dx); Vitamin D deficiency; Prediabetes; Hyperlipidemia with target LDL less than 100; Screening for colon cancer; Other vitamin B12 deficiency anemia; Need for Tdap vaccination from Last 3 Months Immunizations Immunization Administration Dates Next Due H1N1, Unspecified Formulation 08/07/2009 Hepatitis A, Adult 12/28/2018 Hepatitis A, Unspecified Formulation 07/20/2019 Influenza Patient Reported 07/21/2015 Influenza Vaccine Quadrivalent PF 07/27/2017 Influenza Vaccine, Unspecifi ed Formulation 07/20/2019,07/17/2018,07/27/2017,2015,07/10/2009 Influenza, Injectable, MDCK, PF, Quadrivalent 07/15/2020,07/27/2018 MMR 02/11/1993 Tdap 01/23/2025,12/15/2012 Tetanus, Unspecified Formulation 02/11/1993 Zoster Recombinant 04/29/2023,01/11/2023 Surgical History Surgery Date Site/Laterality Comments LEEP 10/17/1999 - 10/16/2000 SECTION 10/17/2006 - 10/16/2007 ECTOPIC SURGERY Medical History Medical History Date Comments Tendonitis of shoulder, left History of tubal ligation 01/19/2024 Family History Medical History Relation Name Comments Cancer Father leukemia Heart Abnormality Father enlarged h eart High Cholesterol Father Hypertension Father Diabetes Maternal Aunt Diabetes Maternal Uncle Diabetes Mother High Blood Pressure Mother High Cholesterol Mother Stroke Mother Diabetes Paternal Grandmother No Known Problems Sister Relation Name Status Comments Father Maternal Aunt Maternal Uncle Mother Paternal Grandmother Sister Alive Social History Tobacco Use Types Packs/Day Years Used Date Smoking Tobacco: Never Smokeless Tobacco: Never Tobacco Cessation:Counseling Given: Not Answered Alcohol Use Standard Drinks/Week Comments No 0 [...] on file Sexual Orientation Not on file Obstetrics History Para Term AB IAB SAB Ectopic Multiple Livin g Live Births 3 1 1 2 Date Outcome GA Total Labor Labor/2nd/3rd Weight Sex Type Anes PTL Kay A1 A5 Name Clin Ectopic 9 lb 10 oz (4.366 kg) M Vag-Sp ont 10 lb 2 oz (4.593 kg) M CS-LTr anv Last Filed Vital Signs Vital Sign Reading Time Taken Comments Blood Pressure 127/60 02/25/2025 12:20 PM EDT Pulse 74 02/25/2025 12:20 PM EDT Temperature 36.6 C (97.9 F) 02/25/2025 12:20 PM EDT Respiratory Rate 18 02/25/2025 12:20 PM EDT Oxygen Saturation 99% 02/25/2025 12:20 PM EDT Inhaled Oxygen Concentration - - Weight 100.2 kg (221 lb) 01/23/2025 8:45 AM EDT Height 170.2 cm (5' 7 ) 01/23/2024 8:18 AM EDT Body Mass Index 34.61 01/23/2024 8:18 AM EDT Plan of Treatment Health Maintenance Due Date Last Done Comments Hepatitis B Vaccine (1 of 3 - 19+ 3-dose series) 1991 Colonoscopy 2017 FIT 2017 Sigmoidoscopy 2017 Virtual Colonography 2017 Pneumococcal Vaccine 50+ (1 of 1 - PCV) 2022 COVID-19 Vaccine ( - season) 2024 Influenza Vaccine (Season Ended) 2025 07/15/2020, 07/20/2019, 08/01/2018, Additional history exists Annual Wellness Exam 01/23/2026 01/23/2025 Breast Cancer Screening 08/07/2026 08/07/20 24, 08/09/2023, 08/06/2022, Additional history exists Cologuard 01/29/2028 01/28/2025, 01/28/2025 Colon Cancer Screening 01/29/2028 Pap Smear 02/20/2028 02/19/2025, 09/16, 12/28/2018, Additional history exists Cervical Cancer Screening 02/19/2030 HPV/Pap Cotest 02/19/2030 02/19/2025 DTaP/TDaP/Td (3 - Td or Tdap) 01/23/2035 01/23/2025, 12/15/2012 Zoster Completed 04/29/2023, 01/11/2023 Meningococcal B Vaccine Aged Out No l onger eligible based on patient's age to complete this topic Goals Goal Patient Goal Type Associated Problems Recent Progress Patient-Stated? 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 Procedure Name Priority Date/Time Associated Diagnosis Comments CT ABDOMEN PELVIS WO ORAL OR IV CONTRAST STAT 02/25/2025 1:18 PM EDT COMPREHENSIVE METABOLIC PANEL STAT 02/25/2025 12:45 PM EDT CBC WITH DIFF STAT 02/25/2025 12:45 PM EDT HUMAN CHORIONIC GONADOTROPIN QUANTITATIVE STAT 02/25/2025 12:45 PM EDT URINALYSIS REFLEX STAT 02/25/2025 12: 31 PM EDT UA W/REFLEX TO CULTURE STAT 12:31 PM EDT URINE CULTURE (NO STAIN) STAT 02/25/2025 12:31 PM EDT EXTRA HENLEY URINE CX STAT 02/25/2025 1 2:31 PM EDT HM PAP SMEAR Routine 02/19/2025 HM HPV Routine 02/19/2025 COLOGUARD Routine 01/28/2025 6:00 AM EDT Screening for colon cancer VITAMIN B12/ FOLIC ACID Routine 01/23/2025 9:23 AM EDT Other vitamin B12 deficiency anemia VITAMIN D 25 HYDROXY Routine 01/23/2025 9:23 AM EDT Vitamin D deficiency BASIC METABOLIC PANEL Routine 01/23/2025 9:23 AM EDT Annual physical exam CBC WITH DIFF Routine 01/23/2025 9:23 AM EDT Annual physical exam HEMOGLOBIN A1C Routine 01/23/2025 9:23 AM EDT Prediabetes LIPID PANEL REFLEX Routine 01/23/2025 9: 23 AM EDT Hyperlipidemia with target LDL less than 100 MM MAMMO DIGITAL SRAVANI SCREEN BILAT Routine 08/07/2024 10:18 AM EDT Encounter for screening mammogram for malignant neoplasm of breast from Last 3 Months or Most Recently Relevant to Health Maintenance Results * CT ABDOMEN PELVIS WO ORAL [...] please contactthe office of the ordering clinician. aAkash Altman MD IM CT ORDERABLES Final Result * (ABNORMAL) CBC WITH DIFF (02/25/2025 12:45 PM EDT) Only the most recent of2 resultswithin the time period is included. WBC 10.6(H) 3.7 - 10.3 x10(3)/mcL 02/25/2025 12:52 PM EDT [facility] RBC 4.96 3.90 - 5.20 x10(6)/mcL 02/25/2025 12:52 PM EDT [facility] Hgb 14.4 11.2 - 15.7 g/dL 02/25/2025 12:52 PM EDT [facility] Hct 42.9 34.0 - 45.0 % 02/25/2025 12:52 PM EDT [facility] MCV 86.5 80.0 - 100.0 fL 02/25/2025 12:52 PM EDT [facility] MCH 29.0 26.0 - 34.0 pg 02/25/2025 12:52 PM EDT [facility] MCHC 33.6 30.7 - 35.5 g/dL 02/25/2025 12:52 PM EDT [facility] RDW 12.7 <=14.9 % 02/25/2025 12:52 PM EDT [facility] Platelet 256 155 - 369 x10(3)/mcL 02/25/2025 12:52 PM EDT [facility] MPV 9.1 8.8 - 12.5 fL 02/25/2025 12:52 PM EDT [facility] Neut Percent 58.0 % 02/25/2025 12:52 PM EDT [facility] Comment:Neutrophils equals s egs plus bands Imm Gran% 0.6 % 02/25/2025 12:52 PM EDT [facility] Comment:Automated count of m etamyelocytes, myelocytes and promyelocytes. Lymph Percent 29.2 % 02/25/2025 12:52 PM EDT [facility] Pettis Percent 8.9 % 02/25/2025 12:52 PM EDT [facility] Eos Percent 2.4 % 02/25/2025 12:52 PM EDT [facility] Baso Percent 0.9 % 02/25/2025 12:52 PM EDT [facility] Neut # 6.2(H) 1.6 - 6.1 x10(3)/[facility] 02/25/2025 12:52 PM EDT [facility] Comment:Neutrophils equals s egs plus bands IMMGRAN# 0.1 0.0 - 0.1 x10(3)/[facility] 02/25/2025 12:52 PM EDT [facility] Comment:Automated count of m etamyelocytes, myelocytes and promyelocytes. An absolute IG <0.1 is reported as 0.0. Lymph # 3.1 1.2 - 3.9 x10(3)/mcL 02/25/2025 12:52 PM EDT [facility] Pettis # 0.9 0.3 - 0.9 x10(3)/[facility] 02/25/2025 12:52 PM EDT [facility] Eos# 0.3 0.0 - 0.5 x10(3)/[facility] 02/25/2025 12:52 PM EDT [facility] Baso # 0.1 0.0 - 0.1 x10(3)/[facility] 02/25/2025 12:52 PM EDT [facility] Blood VENOUS BLOOD / Unknown Venipuncture / Unknown 02/25/2025 12:45 PM EDT 02/25/2025 12:50 PM EDT us Aakash Altman MD HEMATOLOGY ORDERABLES Final Res ult Performing Organization Address [facility] de Phone Number [facility] [address] [place] [address] * HUMAN CHORIONIC GONADOTROPIN QUANTITATIVE (02/25/2025 12:45 PM EDT) [facility] Hcg Quant <1 <5 mIU/mL 02/25/2025 1:07 PM EDT [facility] Blood VENOUS BLOOD / Unknown Venipuncture / Unknown 02/25/2025 12:45 PM EDT 02/25/2025 12:50 PM EDT Narrative [facility] - 02/25/2025 1:07 PM EDT Female [...] sample can interfere with this immunoassay test. Aakash Altman MD CHEMISTRY ORDERABLES Final Resu lt Performing Organization Address [facility] de Phone Number [facility] [address] [place] [address] * COMPREHENSIVE METABOLIC PANEL (02/25/2025 12:45 PM EDT) [facility] Sodium 140 136 - 145 mmol/L 02/25/2025 1:07 PM EDT [facility] Potassium 4.0 3.5 - 5.0 mmol/L 02/25/2025 1:07 PM EDT [facility] Chloride 105 98 - 107 mmol/L 02/25/2025 1:07 PM EDT [facility] Total CO2 24 22 - 29 mmol/L 02/25/2025 1:07 PM EDT [facility] Anion Gap 11 7 - 16 mmol/L 02/25/2025 1:07 PM EDT [facility] Calcium 9.7 8.6 - 10.4 mg/dL 02/25/2025 1:07 PM EDT [facility] Glucose Lvl 89 70 - 99 mg/dL 02/25/2025 1:07 PM EDT [facility] BUN 13 6 - 20 mg/dL 02/25/2025 1:07 PM EDT [facility] Creatinine 0.66 0.51 - 1.30 mg/dL 02/25/2025 1:07 PM EDT [facility] Albumin 4.7 3.5 - 5.2 gm/dL 02/25/2025 1:07 PM EDT [facility] Total Protein 7.4 6.4 - 8.3 gm/dL 02/25/2025 1:07 PM EDT [facility] Bili Total 0.4 0.2 - 1.3 mg/dL 02/25/2025 1:07 PM EDT [facility] ALT 31 <=41 U/L 02/25/2025 1:07 PM EDT [facility] AST 23 <=40 U/L 02/25/2025 1:07 PM EDT [facility] Alk Phos 55 36 - 123 U/L 02/25/2025 1:07 PM EDT [facility] eGFR (CKD-EPIcr 2020) 105 >=60 mL/min/1.7 3 m2 02/25/2025 1:07 PM EDT [facility] Comment:Estimated GFR was ca lculated using the CKD-EPIcr (2020) equation refit without race. The equation is recommended by the National Kidney Foundation - [place] Society of Nephrology Task Force. Blood VENOUS BLOOD / Unknown Venipuncture / Unknown 02/25/2025 12:45 PM EDT 02/25/2025 12:50 PM EDT us Aakash Altman MD CHEMISTRY ORDERABLES Final Resu lt [facility] [address] [facility] [address] * (ABNORMAL) URINALYSIS REFLEX (02/25/2025 12:31 PM EDT) UA Color Yellow 02/25/2025 12:44 PM EDT [facility] UA Appear Clear Clear 02/25/2025 12:44 PM EDT [facility] UA Glucose Negative Negative mg/dL 02/25/2025 12:44 PM EDT [facility] UA Ketones Negative Negative mg/dL 02/25/2025 12:44 PM EDT [facility] UA Blood Negative Negative 02/25/2025 12:44 PM EDT [facility] UA pH 6.5 5.0 - 8.0 pH 02/25/2025 12:44 PM EDT [facility] UA Protein Negative Negative mg/dL 02/25/2025 12:44 PM EDT [facility] UA Urobilinogen 0.2 <=1 mg/dL 12:44 PM EDT [facility] UA Bili Negative Negative 02/25/2025 12:44 PM EDT [facility] UA Nitrite Negative Negative 02/25/2025 12:44 PM EDT [facility] UA Leuk Est Moderate(A) Negative 02/25/2025 12:44 PM EDT [facility] UA Spec Grav <=1.005 1.001 - 1.035 no units 02/25/2025 12:44 PM EDT [facility] Comment:Reference range meghan d for random specimens only. UA WBC 10(H) 0 - 4 /HPF 02/25/2025 12:44 PM EDT [facility] UA Squam Epi 1+ /LPF 02/25/2025 12:44 PM EDT [facility] UA Bacteria Trace(A) Negative /HPF 02/25/2025 12:44 PM EDT [facility] Urine STRUCTURE OF URINARY TRACT PROPER / Unknown 02/25/2025 12:31 PM EDT 02/25/2025 12:35 PM EDT Aakash Altman MD URINE ORDERABLES Final Result [facility] [address] [place] [address] * EXTRA HENLEY URINE CX (02/25/2025 12:31 PM EDT) Urine STRUCTURE OF URINARY TRACT PROPER / Unknown 02/25/2025 12:31 PM EDT 02/25/2025 12:35 PM EDT Aakash Altman MD MICROBIOLOGY - GENERAL ORDERABL ES Final Result Performing Organization Address [facility] de Phone Number [facility] [address] [place] [address] * URINE CULTURE (NO STAIN) (02/25/2025 12:31 PM EDT) Culture Multiple bacterial species isolated from urine consistent with urogenital commensal organisms. 02/27/2025 4:17 AM EDT [facility] Urine STRUCTURE OF URINARY TRACT PROPER / Unknown 02/25/2025 12:31 PM EDT 02/25/2025 12:44 PM EDT Aakash Altman MD MICROBIOLOGY - GENERAL ORDERABL ES Final Result Performing Organization Address [facility] de Phone Number [email or web address] [address] [place] [address] , [place] [address] * HM HPV (02/19/2025) HPV DNA None Detected None Detected SEP OFFICE 02/19/2025 us Historical Provider HEALTH MAINTENANCE Final Res ult SEP OFFICE * HM PAP SMEAR (02/19/2025) Pap Negative for intraephithelial lesion or malignancy Negative for intraephithelial lesion or malignancy, Other SEP OFFICE 02/19/2025 us Historical Provider HEALTH MAINTENANCE Final Res ult SEP OFFICE * COLOGUARD (01/28/2025 6:00 AM EDT) COLOGUARD CLINICAL REPORT Negative Negative [facility] Comment: The Cologuard (TM) test was performed on this specimen. NEGATIVE TEST RESULT. A negative Cologuard result indicates a low likelihood that a colorectal cancer (CRC) or advanced adenoma (adenomatous polyps with more advanced pre-malignant features) is present. The chance that a person with a negative Cologuard test has a colorectal cancer is less than 1 in 1500 (negative predictive value >99.9%) or has an advanced adenoma is less than 5.3% (negative predictive value 94.7%). These data are based on a prospective cross-sectional study of 10,000 individuals at average risk for colorectal cancer who were screened with both Cologuard and colonoscopy. (Yaneli Vora et al, N Engl J Med 2014;370(14):3396-3467) The normal value (reference range) for this assay is negative. COLOGUARD RE-SCREENING RECOMMENDATION: Periodic colorectal cancer screening is an important part of preventive healthcare for asymptomatic individuals at average risk for colorectal cancer. Following a negative Cologuard result, the Australian Cancer Society and U.S. Multi-Society Task Force screening guidelines recommend a Cologuard re-screening interval of 3 years. References: Australian Cancer Society Guideline for Colorectal Cancer Screening: https://www.cancer.org/cancer/nmzol-ljdndz-okmaop/wegplmvrx-kmbnqftfy-qrqziuz/ac s-rec ommendations.html.; [place]ano RICHARD, [place] CR, Chris FranzK, Colorectal Cancer Screening: Recommendations for Physicians and Patients from the U.S. Multi-Society Task Force on Colorectal Cancer Screening , Am J Gastroenterology 2017; 112:1832-8550. TEST DESCRIPTION: Composite algorithmic analysis of stool DNA-biomarkers with hemoglobin immunoassay. Quantitative values of individual biomarkers are not reportable and are not associated with individual biomarker result reference ranges. Cologuard is intended for colorectal cancer screening of adults of either sex, 45 years or older, who are at average-risk for colorectal cancer (CRC). Cologuard has been approved for use by the U.S. FDA. The performance of Cologuard was established in a cross sectional study of average-risk adults aged 50-84. Cologuard performance in patients ages 45 to 49 years was estimated by sub-group analysis of near-age groups. Colonoscopies performed for a positive result may find as the most clinically significant lesion: colorectal cancer [4.0%], advanced adenoma (including sessile serrated polyps greater than or equal to 1cm diameter) [20%] or non- advanced adenoma [31%]; or no colorectal neoplasia [45%]. These estimates are derived from a prospective cross-sectional screening study of 10,000 individuals at average risk for colorectal cancer who were screened with both Cologuard and colonoscopy. (Yaneli Camargo. et al, N Engl J Med 2014;370(14):4536-3544.) Cologuard may produce a false negative or false positive result (no colorectal cancer or precancerous polyp present at colonoscopy follow up). A negative Cologuard test result does not guarantee the absence of CRC or advanced adenoma (pre-cancer). The current Cologuard screening interval is every 3 years. (Australian Cancer Society and U.S. Multi-Society Task Force). Cologuard performance data in a 10,000 patient pivotal study using colonoscopy as the reference method can be accessed at the following location: www.[employer]/results. Additional description of the Cologuard test process, warnings and precautions can be found at www.cologTeensSuccessrd.com. Stool 01/28/2025 6:00 AM EDT 01/29/2025 10:49 AM EDT us Traci Miramontes DO [facility] ORDERABLES F inal Result [employer] [address] [place] [address], [facility] [place] [address] * (ABNORMAL) LIPID PANEL REFLEX (01/23/2025 9:23 AM EDT) Cholesterol 156 <200 mg/dL 01/23/2025 5:24 PM EDT [facility] [employer] Comment: < 200 Desirable 200 - 239 Borderline High >= 240 High Triglyceride 156(H) <150 mg/dL 01/23/2025 5:24 PM EDT [facility] Comment: < 150 Normal 150 - 199 Borderline High 200 - 499 High >= 500 Very High HDL 54 >=40 mg/dL 01/23/2025 5:24 PM EDT [facility] Comment: > 60 Optimal 40 - 60 Acceptable < 40 Low LDL Calculated 75 <100 mg/dL 01/23/2025 5:24 PM EDT [facility] Comment: < 100 Optimal 100 - 129 Near or above optimal 130 - 159 Borderline High 160 - 189 High >= 190 Very High The National Institutes of Health (NIH) equation is used for all lipid panels that report calculated LDL (LDL-C). Non-HDL-C Calculated 102 <=129 mg/dL 01/23/2025 5:24 PM EDT [facility] Comment: <130 Desirable 130-159 Above Desirable 160-189 Borderline High 190-219 High >= 220 Very High Fasting Specimen? Yes None 025 5:24 PM EDT [facility] [employer] [facility] Blood VENOUS BLOOD / Unknown Venipuncture / Unknown 01/23/2025 9:23 AM EDT 01/23/2025 9:23 AM EDT Traci Miramontes DO CHEMISTRY ORDERABLES Final R esult [facility] [employer] [facility] [address] [facility] , [place] [address] * VITAMIN B12/ FOLIC ACID (01/23/2025 9:23 AM EDT) Pathologist [facility] Vitamin B12 1,024 232 - 1,245 pg/mL 01/23/2025 3:53 PM EDT [facility] Folate >16.00 >=4.80 ng/mL 01/23/2025 3:53 PM EDT [facility] Blood VENOUS BLOOD / Unknown Venipuncture / Unknown 01/23/2025 9:23 AM EDT 01/23/2025 9:23 AM EDT Narrative [facility] [employer] [facility] - 01/23/2025 3:53 PM EDT Ingestion of radha doses of biotin (>5 mg/day) taken within 8 hours of drawing blood sample can interfere with this immunoassay test. Traci Miramontes DO CHEMISTRY ORDERABLES Final R esult Performing Organization Address City/[facility]/ZIP Co de Phone Number [facility] [employer] [address] , [place] [address] * (ABNORMAL) VITAMIN D 25 HYDROXY (01/23/2025 9:23 AM EDT) Pathologist [facility] Vit D 25 OH 27.1(L) 30.0 - 150.0 ng/mL 01/23/2025 3:53 PM EDT [facility] Comment: Preferred: >= 30 ng/mL Insufficient: 21-29 ng/mL Deficient <= 20 ng/mL Possible Toxicity: >150 ng/mL Samples should not be taken from patients receiving therapy with high biotin doses (i.e. > 5 mg/day) until at least 8 hours following the last biotin administration. Blood VENOUS BLOOD / Unknown Venipuncture / Unknown 01/23/2025 9:23 AM EDT 01/23/2025 9:23 AM EDT Traci Miramontes DO CHEMISTRY ORDERABLES Final R esult Performing Organization Address [facility]/ZIP Co de Phone Number [facility] [email or web address] , [place] [address] * HEMOGLOBIN A1C (01/23/2025 9:23 AM EDT) Pathologist [facility] Hgb A1C 5.5 4.2 - 5.6 % 01/23/2025 4:42 PM EDT [facility], [facility] Est. Avg Glucose 111 mg/dL 01/23/2025 4:42 PM EDT [facility] [employer] [facility] Blood VENOUS BLOOD / Unknown Venipuncture / Unknown 01/23/2025 9:23 AM EDT 01/23/2025 9:23 AM EDT Narrative [facility] [employer] [facility] - 01/23/2025 4:42 PM EDT REFERENCE RANGE: Normal: 4.0-5.6% Pre-diabetes: 5.7-6.4% Provisional diagnosis of diabetes: >6.4% Hgb F>10% and anything which shortens red cell survival, such as hemolytic anemia, or unstable hemoglobin variants such as HbSS, HbSC, or HbCC, will lower the HbA1c value associated with a given level of glycemic control. us Traci Miramontes DO CHEMISTRY ORDERABLES Final R esult [facility], [facility] [address] [facility] , [address] [place] [id number] * BASIC METABOLIC PANEL (01/23/2025 9:23 AM EDT) Sodium 140 136 - 145 mmol/L 01/23/2025 5:24 PM EDT [facility] Potassium 4.1 3.5 - 5.0 mmol/L 01/23/2025 5:24 PM EDT [facility] Chloride 102 98 - 107 mmol/L 01/23/2025 5:24 PM EDT [facility] Total CO2 26 22 - 29 mmol/L 01/23/2025 5:24 PM EDT [facility] Anion Gap 12 7 - 16 mmol/L 01/23/2025 5:24 PM EDT [facility] Calcium 9.8 8.6 - 10.4 mg/dL 01/23/2025 5:24 PM EDT [facility] Glucose Lvl 97 70 - 99 mg/dL 01/23/2025 5:24 PM EDT [facility] BUN 13 6 - 20 mg/dL 01/23/2025 5:24 PM EDT [facility] Creatinine 0.71 0.51 - 1.30 mg/dL 01/23/2025 5:24 PM EDT [facility] eGFR (CKD-EPIcr 2020) 102 >=60 mL/min/1.7 3 m2 01/23/2025 5:24 PM EDT [facility] Comment:Estimated GFR was ca lculated using the CKD-EPIcr (2020) equation refit without race. The equation is recommended by the National Kidney Foundation - [place] Society of Nephrology Task Force. Blood VENOUS BLOOD / Unknown Venipuncture / Unknown 01/23/2025 9:23 AM EDT 01/23/2025 9:23 AM EDT Traci Miramontes DO CHEMISTRY ORDERABLES Final R esult [facility] [employer] [address] , [place] [address] * MM MAMMO DIGITAL SRAVANI SCREEN BILAT (08/07/2024 10:18 AM EDT) Anatomical Region Laterality Modality Breast Bilateral Mammography 08/07/2024 10:1 8 AM EDT Impressions 08/07/2024 10:35 AM EDT Negative ([id number]) RECOMMENDATION: Routine Screening Mammogram in 1 Year Bilateral No additional recommendation No additional laterality COMMENTS: Narrative 08/07/2024 10:35 AM EDT EXAM: MM MAMMO DIGITAL SRAVANI SCREEN BILAT EXAM DATE: 08/07/2024 10:18 AM INDICATION: Z12.31-Encounter for screening mammogram for malignant neoplasm of [id number] COMPARISON STUDIES: Compared with prior studies the most recent being 08/05/2021 and 08/09/2023. TISSUE DENSITY: There are scattered areas of fibroglandular density. FINDINGS: No mammographic evidence of malignancy. Procedure Note Katiana Julio MD - 08/07/2024 EXAM: MM MAMMO DIGITAL SRAVANI SCREEN BILAT EXAM DATE: 08/07/2024 10:18 AM INDICATION: Z12.31-Encounter for screening mammogram for malignantneoplasm of [id number] COMPARISON STUDIES: Compared with prior studies the most recent being08/05/2021 and 08/09/2023. TISSUE DENSITY: There are scattered areas of fibroglandular density. FINDINGS: No mammographic evidence of malignancy. IMPRESSION: Negative ([id number]) RECOMMENDATION: Routine Screening Mammogram in 1 Year Bilateral No additional recommendation No additional laterality COMMENTS: us Traci Miramontes DO IMG MAMMOGRAPHY ORDERABLES F inal Result from Last 3 Months or Most Recently Relevant to Health Maintenance Insurance ANTHEM PPO ANTHEM PPO * Guarantor: Pricilla Caba Account Type Relation to Patient Date of Phone Billing Address [place] Personal Family Self Care Teams Hot Dip Galvanizer Relationship Specialty Start Date End Date Traci Miramontes [place] [address] PCP - General Family Medicine 12/21/23 Corrie Rodriguez MD Consulting Physician Obstetrics & Gynecology 01/09/20
--- OUTSIDE RECORDS SUMMARY | 2025-04-12 09:41 | XMS_ITS | Encounter Summary ---
Author Organization [place] [address] Care Team Providers Care Cloth Printing Inspector Name Role Phone Corrie Rodriguez MD Unavailable [facility] Traci Miramontes DO Primary Care Provider [phone] Reason for Visit * Reason Comments Medication Refill Encounter Details Date Type Department Care Team (Late st Contact Info) Description 03/06/2025 Refill SEP [facility] [email or web address] [address] Traci Miramontes DO [email or web address] [address] Medication Refill Social History Tobacco Use Types Packs/Day Years [...] 8:07 AM EDT Doris Shafer RMA documented as of this encounter Mental Status * Because of a physical, mental or emotional condition, does this person have serious difficulty concentrating, remembering or making decisions? Answer Entry Date Author No 01/02/2021 8:07 AM Doris Brown RMA documented in this encounter Ordered Prescriptions Prescription Sig Dispense Quantity Refills Last Filled Start Date End Date rosuvastatin (CRESTOR) 5 mg Oral TabletIndications:Hy perlipidemia, unspecified hyperlipidemia type,Hyperlipidemia with target LDL less than 100 TAKE 1 TABLET BY MOUTH EVERY DAY AT NIGHT 100 Tablet 2 03/07/2025 documented in this encounter Miscellaneous Notes * Telephone Encounter - Anyi Soria CPhT - 03/07/2025 12:51 PM EDT Rosuvastatin 5mg - Future Visit: na Last Assessed Visit: 01-23-25 Follow-Up Date: 01-23-26 All protocols passed. Refills approved and sent to requesting pharmacy. Routed to [facility] if applicable. documented in this encounter Plan of Treatment Not on file documented as of this encounter Goals Goal Patient Goal Type Associated Problems Recent Progress Patient-Stated? 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 RN documented as of this encounter Visit Diagnoses Diagnosis Hyperlipidemia, unspecified hyperlipidemia type documented in this encounter Discontinued Medications Medication Sig Discontinue Reason Start Date End Da te rosuvastatin (CRESTOR) 5 mg Oral TabletIndications:Hyperlip idemia, unspecified hyperlipidemia type,Hyperlipidemia with target LDL less than 100 TAKE 1 TABLET BY MOUTH EVERY DAY AT NIGHT 12/12/2024 03/07/2025 documented as of this encounter Care Teams Cloth Printing Inspector Relationship Specialty Start Date End Date Traci Miramontes DO [employer] [place] [address] PCP - General Family Medicine 12/21/23 Corrie Rodriguez MD Consulting Physician Obstetrics & Gynecology 01/09/20 documented as of this encounter
--- OUTSIDE RECORDS SUMMARY | 2025-04-12 09:41 | XMS_ITS | Encounter Summary ---
Author Organization [place] [address] Care Team Providers Care Final Coat Sprayer Name Role Phone Corrie Rodriguez MD Unavailable Traci Camacho DO Primary Care Provider [phone] Encounter Details Date Type Department Care Team (Late st Contact Info) Description 02/01/2025 Results Follow-Up SEP [facility] [address] [place] [address] Alexus Cazares MA LIPID PANEL REFLEX, HEMOGLOBIN A1C, CBC WITH DIFF, Additional followed-up results: 4 Social History Tobacco Use Types Packs/Day Years [...] 12:22 PM EDT Oni Ovalle RN * [place] Suicide Severity Rating Scale (Q shift for [...] Doris Shafer RMA documented in this encounter Progress Notes * Ana Maria Amanda RN - 02/04/2025 8:11 AM EDT Laboratory results received, patient notified by: Contacted by [employer] message documented in this encounter Plan of Treatment Not on file documented as of this encounter Goals Goal Patient Goal Type Associated Problems Recent Progress Patient-Stated? 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, RN documented as of this encounter Visit Diagnoses Not on filedocumented in this encounter Care Teams Final Coat Sprayer Relationship Specialty Start Date End Date Traci Miramontes DO [employer] [place] [address] PCP - General Family Medicine 12/21/23 Corrie Rodriguez MD Consulting Physician Obstetrics & Gynecology 01/09/20 documented as of this encounter
--- OUTSIDE RECORDS SUMMARY | 2025-04-12 09:41 | XMS_ITS | Encounter Summary ---
Author Organization [place] [address] Care Team Providers Care Benzene Worker Name Role Phone Corrie Rodriguez MD Unavailable [facility] Traci Miramontes DO Primary Care Provider [phone] Reason for Visit * Reason Onset Date Comments Appointment Needed 02/25/2025 on and off pa in in lower right side x 2 days/ no bal Encounter Details Date Type Department Care Team (Late st Contact Info) Description 02/25/2025 Telephone SEP [facility] [address] [address] Traci Miramontes DO [address] [place] [address] Appointment Needed (on and off pain in lower right side x 2 days/ no bal) Social History Tobacco Use Types Packs/Day Years [...] 12:22 PM EDT Oni Ovalle RN * [place] Suicide Severity Rating Scale (Q shift for [...] Doris Shafer RMA documented in this encounter Miscellaneous Notes * Telephone Encounter - Alexus Cazares MA - 02/25/2025 9:52 AM EDT Appt scheduled. * Telephone Encounter - Daryl Garnica - 02/25/2025 9:07 AM EDT Select the most appropriate reason for this telephone message: Appointment Needed Appointment Requested By: Patient Provider Preference: PCP Only Type of Appt Needed: Acute Detailed Reason for Appt: on and off pain in lower right side x 2 days/ no bal Requested Timeframe: Other leticia Reason Scheduling Assistance is Needed: -no appts available with provider preference in time frame needed Return Method of Communication: Phone Call Additional Information: please advise pt. documented in this encounter Plan of Treatment Not on file documented as of this encounter Goals Goal Patient Goal Type Associated Problems Recent Progress Patient-Stated? 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, HESHAM documented as of this encounter Visit Diagnoses Not on filedocumented in this encounter Care Teams Benzene Worker Relationship Specialty Start Date End Date Traci Miramontes DO [employer] [place] [id number] PCP - General Family Medicine 12/21/23 Corrie Rodriguez MD Consulting Physician Obstetrics & Gynecology 01/09/20 documented as of this encounter
--- NOTE | 2025-04-12 10:00 | US_ITS ---
PROCEDURE: US TRANSVAGINAL CLINICAL INDICATION: Abnormal spotting, schedule within a few weeks COMPARISON: No exams were available for comparison FINDINGS: Transvaginal sonographic images of the pelvis were obtained. UTERUS: 8.0cm x 5.8 cmx 4.2cm anteverted with a combined endometrial thickness of 5.3mm. There is a subserosal fibroid on the left that measures 1.35 cm in size. There is a 2nd fibroid measuring 1.4 cm x 1.8 cm. LEFT OVARY: [id number] with a volume of 1.2ml. Difficult to image but appears normal. RIGHT OVARY: 2cmx [id number] with a volume of 1.6ml. Both ovaries are seen and appear normal. Doppler flow to both ovaries are seen. There is no fluid in the cul-de-sac. IMPRESSION: 1. Anteverted uterus normal in shape and size. There are 2 fibroids seen measuring 1.4 cm and 1.8 cm. The endometrium is thin measuring 5.3 mm. 2. Both ovaries are seen and appear normal. The left ovary is more difficult to visualize. 3. No fluid in the cul-de-sac. Dictated by: Raymond Guardado MD 04/12/2025 16:26 Raymond Guardado MD in OV 04/12/2025 16:26
== END 2025-04-12 23:59 | disposition home or self-care (01) ==
LOC: RAD 09:39
PROVIDERS: PCP Student in an Organized Health Care Education/Training Program; Visit Provider Obstetrics & Gynecology
DX: D25.9 Leiomyoma of uterus, unspecified (principal)
CPT/HCPCS: 76830

== ENCOUNTER 2025-04-15 13:54 | Outpatient (CLI) | payer BC, SELFPAY ==
--- OUTSIDE RECORDS SUMMARY | 2025-02-25 12:29 | XMS_ITS | Encounter Summary ---
Author Organization [place] [address] Care Team Providers Care Millwork Estimator Name Role Phone Corrie Rodriguez MD Unavailable Traci Camacho DO Primary Care Provider + [phone] Reason for Visit * Reason Comments Abdominal Pain RLQ abd pain. Interm ittent. +diarrhea Radiates down to groin area. Moves. Increased urinary frequency. Encounter Details Date Type Department Care Team (Late st Contact Info) Description 02/25/2025 12:29 PM EDT - 02/25/2025 1:47 PM EDT Emergency [facility] Emergency [address] [place] [address] Aakash Altman MD [address] [place] [phone] Acute cystitis without hematuria (Primary Dx); [...] 12:22 PM EDT Oni Ovalle RN * [place] Suicide Severity Rating Scale (Q shift for [...] Means Destination Comment s Home or Self Snf documented in this encounter ED Notes * [...] CULTURE. Procedure Abnormality Status --------- ------ URINALYSIS REFLEX[[id number]] Abnormal Final result EXTRA HENLEY URINE CX[[id number]] Final result Please view results for these [...] Gran% 0.6 % Lymph Percent 29.2 % [place] Percent 8.9 % Eos Percent 2.4 % Baso Percent 0.9 % Neut # 6.2 (H) 1.6 - 6.1 x10(3)/mcL IMMGRAN# 0.1 0.0 - 0.1 x10(3)/mcL Lymph # 3.1 1.2 - 3.9 x10(3)/mcL [place] # 0.9 0.3 - 0.9 x10(3)/mcL Eos# [...] - 145 mmol/L 02/25/2025 1:07 PM EDT [facility] Potassium 4.0 3.5 - 5.0 mmol/L 02/25/2025 1:07 PM EDT [facility] Chloride 105 98 - 107 mmol/L 02/25/2025 1:07 PM EDT [facility] Total CO2 24 22 - 29 mmol/L 02/25/2025 1:07 PM T [facility] Anion Gap 11 7 - 16 mmol/L 02/25/2025 1:07 PM [facility] Calcium 9.7 8.6 - 10.4 mg/dL 02/25/2025 1:07 PM T [facility] Glucose Lvl 89 70 - 99 mg/dL 02/25/2025 1:07 PM EDT [facility] BUN 13 6 - 20 mg/dL 02/25/2025 1:07 PM [facility] Creatinine 0.66 0.51 - 1.30 mg/dL 02/25/2025 1:07 PM [facility] Albumin 4.7 3.5 - 5.2 gm/dL 02/25/2025 1:07 PM T [facility] Total Protein 7.4 6.4 - 8.3 gm/dL 02/25/2025 1:07 PM EDT [facility] Bili Total 0.4 0.2 - 1.3 mg/dL 02/25/2025 1:07 PM EDT [facility] ALT 31 <=41 U/L 02/25/2025 1:07 PM EDT [facility] AST 23 <=40 U/L 02/25/2025 1:07 PM EDT [facility] Alk Phos 55 36 - 123 U/L 02/25/2025 1:07 PM EDT [facility] eGFR (CKD-EPIcr 2020) 105 >=60 mL/min/1.7 3 m2 02/25/2025 1:07 PM EDT [facility] Comment:Estimated GFR was ca lculated using the CKD-EPIcr (2020) equation refit without race. The equation is recommended by the National Kidney [employer] - [place] [employer] Neph[employer] Task Force. Blood VENOUS BLOOD / Unknown Venipuncture / Unknown 02/25/2025 12:45 PM EDT 02/25/2025 12:50 PM EDT us Aakash Altman MD CHEMISTRY ORDERABLES Final Resu lt [facility] [address] [place] [address] * (ABNORMAL) CBC WITH DIFF (02/25/2025 12:45 PM EDT) WBC 10.6(H) 3.7 - 10.3 x10(3)/mcL 02/25/2025 12:52 PM EDT [facility] RBC 4.96 3.90 - 5.20 x10(6)/mcL 02/25/2025 12:52 PM EDT [facility] Hgb 14.4 11.2 - 15.7 g/dL 02/25/2025 12:52 PM EDT [facility] Hct 42.9 34.0 - 45.0 % 02/25/2025 12:52 PM EDT [facility] MCV 86.5 80.0 - 100.0 fL 02/25/2025 12:52 PM EDT [facility] MCH 29.0 26.0 - 34.0 pg 02/25/2025 12:52 PM EDT [facility] MCHC 33.6 30.7 - 35.5 g/dL 02/25/2025 12:52 PM EDT [facility] RDW 12.7 <=14.9 % 02/25/2025 12:52 PM EDT [facility] Platelet 256 155 - 369 x10(3)/mcL 02/25/2025 12:52 PM EDT [facility] MPV 9.1 8.8 - 12.5 fL 02/25/2025 12:52 PM EDT [facility] Neut Percent 58.0 % 02/25/2025 12:52 PM EDT [facility] Comment:Neutrophils equals s egs plus bands Imm Gran% 0.6 % 02/25/2025 12:52 PM EDT [facility] Comment:Automated count of m etamyelocytes, myelocytes and promyelocytes. Lymph Percent 29.2 % 02/25/2025 12:52 PM EDT [facility] [place] Percent 8.9 % 02/25/2025 12:52 PM EDT [facility] Eos Percent 2.4 % 02/25/2025 12:52 PM EDT [facility] Baso Percent 0.9 % 02/25/2025 12:52 PM EDT [facility] Neut # 6.2(H) 1.6 - 6.1 x10(3)/[facility] 02/25/2025 12:52 PM EDT [facility] Comment:Neutrophils equals s egs plus bands IMMGRAN# 0.1 0.0 - 0.1 x10(3)/[facility] 02/25/2025 12:52 PM [facility] Comment:Automated count of m etamyelocytes, myelocytes and promyelocytes. An absolute IG <0.1 is reported as 0.0. Lymph # 3.1 1.2 - 3.9 x10(3)/[facility] 02/25/2025 12:52 PM EDT [facility] [place] # 0.9 0.3 - 0.9 x10(3)/[facility] Eos# 0.3 0.0 - 0.5 x10(3)/[facility] 02/25/2025 12:52 PM [facility] Baso # 0.1 0.0 - 0.1 x10(3)/[facility] 02/25[facility]2025 12:[facility] Blood VENOUS BLOOD / Unknown Venipuncture / Unknown 02/25/2025 12:45 PM EDT 02/25/2025 12:50 PM EDT Aakash Altman MD HEMATOLOGY ORDERABLES Final Res ult Performing Organization Address [facility] de Phone Number [facility] [address] [place] [address] * HUMAN CHORIONIC GONADOTROPIN QUANTITATIVE (02/25/2025 12:45 PM EDT) Hcg Quant <1 <5 mIU/mL 02/25/2025 1:07 PM EDT [facility] Blood VENOUS BLOOD / Unknown Venipuncture / Unknown 02/25/2025 12:45 PM EDT 02/25/2025 12:50 PM EDT Narrative [facility] - [...] ORDERABLES Final Resu lt Performing Organization Address [facility] de Phone Number [facility] [address] [place] [address] * URINE CULTURE (NO STAIN) (02/25/2025 12:31 PM EDT) Pathologist [facility] Culture Multiple bacterial species isolated from urine consistent with urogenital commensal organisms. 02/27/2025 4:17 AM EDT [facility] [place] Urine STRUCTURE OF URINARY TRACT PROPER / Unknown 02/25/2025 12:31 PM EDT 02/25/2025 12:44 PM EDT us Aakash Altman MD MICROBIOLOGY - GENERAL ORDERABL ES Final Result [facility] [address] [facility] , [place] [address] * EXTRA HENLEY URINE CX (02/25/2025 12:31 PM EDT) Urine STRUCTURE OF URINARY TRACT PROPER / Unknown 02/25/2025 12:31 PM EDT 02/25/2025 12:35 PM EDT Aakash Altman MD MICROBIOLOGY - GENERAL ORDERABL ES Final Result Performing Organization Address [facility]/ZIP Co de Phone Number [address] [address] * (ABNORMAL) URINALYSIS REFLEX (02/25/2025 12:31 PM EDT) UA Color Yellow 02/25/2025 12:44 PM EDT [facility] UA Appear Clear Clear 02/25/2025 12:44 PM EDT [facility] UA Glucose Negative Negative mg/dL 02/25/2025 12:44 PM EDT [facility] UA Ketones Negative Negative mg/dL 02/25/2025 12:44 PM EDT [facility] UA Blood Negative Negative 02/25/2025 12:44 PM EDT [facility] UA pH 6.5 5.0 - 8.0 pH 02/25/2025 12:44 PM EDT [facility] UA Protein Negative Negative mg/dL 02/25/2025 12:44 PM EDT [facility] UA Urobilinogen 0.2 <=1 mg/dL 12:44 PM EDT [facility] UA Bili Negative Negative 02/25/2025 12:44 PM EDT [facility] UA Nitrite Negative Negative 02/25/2025 12:44 PM EDT [facility] UA Leuk Est Moderate(A) Negative 02/25/2025 12:44 PM EDT [facility] UA Spec Grav <=1.005 1.001 - 1.035 no units 02/25/2025 12:44 PM EDT [facility] Comment:Reference range meghan d for random specimens only. UA WBC 10(H) 0 - 4 /HPF 02/25/2025 12:44 PM EDT [facility] UA Squam Epi 1+ /LPF 02/25/2025 12:44 PM EDT [facility] UA Bacteria Trace(A) Negative /HPF 02/25/2025 12:44 PM EDT [facility] Urine STRUCTURE OF URINARY TRACT PROPER / Unknown 02/25/2025 12:31 PM EDT 02/25/2025 12:35 PM EDT Aakash Altman MD URINE ORDERABLES Final Result [facility] [address] [place] [address] documented in this encounter Visit Diagnoses Diagnosis Acute cystitis without hematuria- Primary Acute cystitis Loose stools Abnormal feces documented in this encounter Care Teams Millwork Estimator Relationship Specialty Start Date End Date Traci [place] [address] PCP - General Family Medicine 12/21/23 Corrie Rodriguez MD Consulting Physician Obstetrics & Gynecology 01/09/20 documented as of this encounter
--- OUTSIDE RECORDS SUMMARY | 2025-04-15 13:57 | XMS_ITS | Encounter Summary ---
Author Organization [place] [address] Care Team Providers Care Gaming Associate Name Role Phone Corrie Rodriguez MD [facility] Traci Miramontes DO Primary Care Provider [phone] Encounter Details Date Type Department Care Team (Late st Contact Info) Description 02/21/2025 Abstract SEP [facility] [address] [place] [address] Traci Miramontes DO [address] [place] [id number] Social History Tobacco Use Types Packs/Day Years [...] Assessment Author No 01/02/2021 8:07 AM Doris rBown RMA documented as of this encounter Mental [...] MAINTENANCE Final Res ult Performing Organization Address [facility] Co de Phone Number SEP OFFICE * HM HPV (02/19/2025) HPV DNA None Detected None Detected SEP OFFICE 02/19/2025 [facility] Provider HEALTH MAINTENANCE Final Res ult SEP OFFICE documented in this encounter Visit Diagnoses Not on filedocumented in this encounter Care Teams Gaming Associate Relationship Specialty Start Date End Date Traci Miramontes DO [address] [place] [address] PCP - General Family Medicine 12/21/23 Corrie Rodriguez MD Consulting Physician Obstetrics & Gynecology 01/09/20 documented as of this encounter
--- OUTSIDE RECORDS SUMMARY | 2025-04-15 13:57 | XMS_ITS | Encounter Summary ---
Author Organization [place] [address] Care Team Providers Care Faculty Instructor Name Role Phone Corrie Rodriguez MD Unavailable [facility] Traci Miramontes DO Primary Care Provider [phone] Reason for Visit * Reason Onset Date Comments Appointment Needed 02/25/2025 on and off pa in in lower right side x 2 days/ no bal Encounter Details Date Type Department Care Team (Late st Contact Info) Description 02/25/2025 Telephone SEP [facility] [address] [place] [address] Traci Miramontes DO [address] [place] [address] Appointment Needed (on and off pain in [...] 12:22 PM EDT Oni Ovalle RN * [place] Suicide Severity Rating Scale (Q shift for [...] on filedocumented in this encounter Care Teams Faculty Instructor Relationship Specialty Start Date End Date Traci Miramontes DO [employer] [place] [id number] PCP - General Family Medicine 12/21/23 Corrie Rodriguez MD Consulting Physician Obstetrics & Gynecology 01/09/20 documented as of this encounter
--- OUTSIDE RECORDS SUMMARY | 2025-04-15 13:57 | XMS_ITS | Encounter Summary ---
Author Organization [place] [address] Care Team Providers Care Energy Efficient Site Manager Name Role Phone Corrie Rodriguez MD Unavailable Traci Camacho DO Primary Care Provider [phone] Encounter Details Date Type Department Care Team (Late st Contact Info) Description 02/01/2025 Results Follow-Up SEP [facility] [address] [place] [address] Alexus Cazares MA LIPID PANEL REFLEX, [...] 12:22 PM EDT Oni Ovalle RN * [place] Suicide Severity Rating Scale (Q shift for [...] results received, patient notified by: Contacted by [employer] message documented in this encounter Plan of Treatment Not on file documented as of this encounter Goals Goal Patient Goal Type Associated Problems Recent Progress Patient-Stated? 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, RN documented as of this encounter Visit Diagnoses Not on filedocumented in this encounter Care Teams Energy Efficient Site Manager Relationship Specialty Start Date End Date Traci Miramontes DO [employer] [place] [address] PCP - General Family Medicine 12/21/23 Corrie Rodriguez MD Consulting Physician Obstetrics & Gynecology 01/09/20 documented as of this encounter
--- OUTSIDE RECORDS SUMMARY | 2025-04-15 13:57 | XMS_ITS | Encounter Summary ---
Author Organization [facility] [place] [address] Care Team Providers Care Professor Of Nursing Name Role Phone Corrie Rodriguez MD, Danielle R DO Primary Care Provider [phone] Encounter Details Date Type Department Care Team [...] 02/25/2025 12:22 PM Oni Sommers RN * [place] Suicide Severity Rating Scale (Q shift for [...] on filedocumented in this encounter Care Teams Professor Of Nursing Relationship Specialty Start Date End Date Traci Miramontes DO [employer] [place] [address] PCP - General Family Medicine 12/21/23 Corrie Rodriguez MD Consulting Physician Obstetrics & Gynecology 01/09/20 documented as of this encounter
--- OUTSIDE RECORDS SUMMARY | 2025-04-15 13:57 | XMS_ITS | Clinical Summary ---
Author Organization [facility] Address [address] [place] [address] Phone Care Team Providers Care It Corporate Recruiter Name Role Phone Corrie Rodriguez MD Unavailable Traci Camacho DO Primary Care Provider [phone] Allergies No known active allergies Medications cetirizine [...] Type Department Care Team Description 03/06/[address] [place] [address] Traci Miramontes, DO Medication Refill 02/25/2025 12:29 PM EDT - 02/25/2025 1:[address] [facility] [address] [place] [address] Aakash Altman MD Acute cystitis without hematuria (Primary Dx); Loose stools Discharge Disposition: Home or Self Care 02/25/2025 Travel 02/25/[address] [place] [address] Traci Miramontes, Appointment Needed (on and off pain in lower right side x 2 days/ no bal) 02/21/[address] [place] [address] Traci Miramontes, 02/01/2025 Results Follow-Up [address] [place] [address] Alexus Cazares MA LIPID PANEL REFLEX, HEMOGLOBIN A1C, CBC WITH DIFF, Additional followed-up results: 4 01/23/2025 9:00 AM EDT Office Visit [address] [place] [address] Traci Miramontes, Annual physical exam (Primary Dx); [...] ideal body weight 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 Aakash Altman MD IM CT ORDERABLES Final Result * (ABNORMAL) CBC WITH DIFF (02/25/2025 12:45 PM EDT) Only the most recent of2 resultswithin the time period is included. WBC 10.6(H) 3.7 - 10.3 x10(3)/mcL 02/25/2025 12:52 PM EDT [facility] RBC 4.96 3.90 - 5.20 x10(6)/mcL 02/25/2025 12:52 PM EDT [facility] Hgb 14.4 11.2 - 15.7 g/dL 02/25/2025 12:52 PM EDT [facility] Hct 42.9 34.0 - 45.0 % 02/25/2025 12:52 PM EDT [facility] MCV 86.5 80.0 - 100.0 fL 02/25/2025 12:52 PM EDT [facility] MCH 29.0 26.0 - 34.0 pg 02/25/2025 12:52 PM EDT [facility] MCHC 33.6 30.7 - 35.5 g/dL 02/25/2025 12:52 PM EDT [facility] RDW 12.7 <=14.9 % 02/25/2025 12:52 PM EDT [facility] Platelet 256 155 - 369 x10(3)/mcL 02/25/2025 12:52 PM EDT [facility] MPV 9.1 8.8 - 12.5 fL 02/25/2025 12:52 PM EDT [facility] Neut Percent 58.0 % 02/25/2025 12:52 PM EDT [facility] Comment:Neutrophils equals s egs plus bands Imm Gran% 0.6 % 02/25/2025 12:52 PM EDT [facility] Comment:Automated count of m etamyelocytes, myelocytes and promyelocytes. Lymph Percent 29.2 % 02/25/2025 12:52 PM EDT [facility] Chase Percent 8.9 % 02/25/2025 12:52 PM EDT [facility] Eos Percent 2.4 % 02/25/2025 12:52 PM EDT [facility] Baso Percent 0.9 % 02/25/2025 12:52 PM EDT [facility] Neut # 6.2(H) 1.6 - 6.1 x10(3)/[facility] 02/25/2025 12:52 PM EDT [facility] Comment:Neutrophils equals s egs plus bands IMMGRAN# 0.1 0.0 - 0.1 x10(3)/[facility] 02/25/2025 12:52 PM EDT [facility] Comment:Automated count of m etamyelocytes, myelocytes and promyelocytes. An absolute IG <0.1 is reported as 0.0. Lymph # 3.1 1.2 - 3.9 x10(3)/mcL 02/25/2025 12:52 PM EDT [facility] Chase # 0.9 0.3 - 0.9 x10(3)/[facility] 02/25/2025 12:52 PM EDT [facility] Eos# 0.3 0.0 - 0.5 x10(3)/[facility] 02/25/2025 12:52 PM EDT [facility] Baso # 0.1 0.0 - 0.1 x10(3)/[facility] 02/25/2025 12:52 PM EDT [facility] Blood VENOUS BLOOD / Unknown Venipuncture / Unknown 02/25/2025 12:45 PM EDT 02/25/2025 12:50 PM EDT us Aakash Altman MD HEMATOLOGY ORDERABLES Final Res ult Performing Organization Address [facility] de Phone Number [facility] [address] [place] [address] * HUMAN CHORIONIC GONADOTROPIN QUANTITATIVE (02/25/2025 12:45 PM EDT) [facility] Hcg Quant <1 <5 mIU/mL 02/25/2025 1:07 PM EDT [facility] Blood VENOUS BLOOD / Unknown Venipuncture / Unknown 02/25/2025 12:45 PM EDT 02/25/2025 12:50 PM EDT Narrative [facility] - 02/25/2025 1:07 PM EDT Female [...] ORDERABLES Final Resu lt Performing Organization Address [facility] de Phone Number [facility] [address] [place] [address] * COMPREHENSIVE METABOLIC PANEL (02/25/2025 12:45 PM EDT) [facility] Sodium 140 136 - 145 mmol/L 02/25/2025 1:07 PM EDT [facility] Potassium 4.0 3.5 - 5.0 mmol/L 02/25/2025 1:07 PM EDT [facility] Chloride 105 98 - 107 mmol/L 02/25/2025 1:07 PM EDT [facility] Total CO2 24 22 - 29 mmol/L 02/25/2025 1:07 PM EDT [facility] Anion Gap 11 7 - 16 mmol/L 02/25/2025 1:07 PM EDT [facility] Calcium 9.7 8.6 - 10.4 mg/dL 02/25/2025 1:07 PM EDT [facility] Glucose Lvl 89 70 - 99 mg/dL 02/25/2025 1:07 PM EDT [facility] BUN 13 6 - 20 mg/dL 02/25/2025 1:07 PM EDT [facility] Creatinine 0.66 0.51 - 1.30 mg/dL 02/25/2025 1:07 PM EDT [facility] Albumin 4.7 3.5 - 5.2 gm/dL 02/25/2025 1:07 PM EDT [facility] Total Protein 7.4 6.4 - 8.3 gm/dL 02/25/2025 1:07 PM EDT [facility] Bili Total 0.4 0.2 - 1.3 mg/dL 02/25/2025 1:07 PM EDT [facility] ALT 31 <=41 U/L 02/25/2025 1:07 PM EDT [facility] AST 23 <=40 U/L 02/25/2025 1:07 PM EDT [facility] Alk Phos 55 36 - 123 U/L 02/25/2025 1:07 PM EDT [facility] eGFR (CKD-EPIcr 2020) 105 >=60 mL/min/1.7 3 m2 02/25/2025 1:07 PM EDT [facility] Comment:Estimated GFR was ca lculated using the CKD-EPIcr (2020) equation refit without race. The equation is recommended by the National Kidney Foundation - [place] [employer] of Nephrology Task Force. Blood VENOUS BLOOD / Unknown Venipuncture / Unknown 02/25/2025 12:45 PM EDT 02/25/2025 12:50 PM EDT us Aakash Altman MD CHEMISTRY ORDERABLES Final Resu lt [facility] [address] [place] [address] * (ABNORMAL) URINALYSIS REFLEX (02/25/2025 12:31 PM EDT) UA Color Yellow 02/25/2025 12:44 PM EDT [facility] UA Appear Clear Clear 02/25/2025 12:44 PM EDT [facility] UA Glucose Negative Negative mg/dL 02/25/2025 12:44 PM EDT [facility] UA Ketones Negative Negative mg/dL 02/25/2025 12:44 PM EDT [facility] UA Blood Negative Negative 02/25/2025 12:44 PM EDT [facility] UA pH 6.5 5.0 - 8.0 pH 02/25/2025 12:44 PM EDT [facility] UA Protein Negative Negative mg/dL 02/25/2025 12:44 PM EDT [facility] UA Urobilinogen 0.2 <=1 mg/dL 12:44 PM EDT [facility] UA Bili Negative Negative 02/25/2025 12:44 PM EDT [facility] UA Nitrite Negative Negative 02/25/2025 12:44 PM EDT [facility] UA Leuk Est Moderate(A) Negative 02/25/2025 12:44 PM EDT [facility] UA Spec Grav <=1.005 1.001 - 1.035 no units 02/25/2025 12:44 PM EDT [facility] Comment:Reference range meghan d for random specimens only. UA WBC 10(H) 0 - 4 /HPF 02/25/2025 12:44 PM EDT [facility] UA Squam Epi 1+ /LPF 02/25/2025 12:44 PM EDT [facility] UA Bacteria Trace(A) Negative /HPF 02/25/2025 12:44 PM EDT [facility] Urine STRUCTURE OF URINARY TRACT PROPER / Unknown 02/25/2025 12:31 PM EDT 02/25/2025 12:35 PM EDT Aakash Altman MD URINE ORDERABLES Final Result [facility] [address] [place] [address] * EXTRA HENLEY URINE CX (02/25/2025 12:31 PM EDT) Urine STRUCTURE OF URINARY TRACT PROPER / Unknown 02/25/2025 12:31 PM EDT 02/25/2025 12:35 PM EDT Aakash Altman MD MICROBIOLOGY - GENERAL ORDERABL ES Final Result Performing Organization Address [facility] Co de Phone Number [facility] [address] [place] [address] * URINE CULTURE (NO STAIN) (02/25/2025 12:31 PM EDT) Culture Multiple bacterial species isolated from urine consistent with urogenital commensal organisms. 02/27/2025 4:17 AM EDT [facility] [employer] Urine STRUCTURE OF URINARY TRACT PROPER / Unknown 02/25/2025 12:31 PM EDT 02/25/2025 12:44 PM EDT Aakash Altman MD MICROBIOLOGY - GENERAL ORDERABL ES Final Result Performing Organization Address [facility] Co de Phone Number [employer] [address] [place] [address] , [place] [address] * HM HPV (02/19/2025) HPV [...] AM EDT) COLOGUARD CLINICAL REPORT Negative Negative [employer] [facility] Comment: The Cologuard (TM) test [...] Vora et al, N Engl J Med 2014;370(14):6620-4343) The normal value (reference range) for this assay is negative. COLOGUARD RE-SCREENING RECOMMENDATION: Periodic colorectal cancer screening is an important part of preventive healthcare for asymptomatic individuals at average risk for colorectal cancer. Following a negative Cologuard result, the [place] Cancer Society and U.S. Multi-Society Task Force screening guidelines recommend a Cologuard re-screening interval of 3 years. References: [place] Cancer Society Guideline for Colorectal Cancer Screening: https://www.cancer.org/cancer/mfoyb-xguhwc-engwwx/vcgxhgtlw-gciouqfyw-ppeiihw/ac s-rec ommendations.html.; [place]ano RICHARD, [place] CR, Chris FranzK, Colorectal Cancer Screening: Recommendations for Physicians and Patients from the U.S. Multi-Society Task Force on Colorectal Cancer Screening , Am J Gastroenterology 2017; 112:0786-8571. TEST DESCRIPTION: Composite algorithmic analysis of stool [...] Camargo. et al, N Engl J Med 2014;370(14):4904-5126.) Cologuard may produce a false negative or false positive result (no colorectal cancer or precancerous polyp present at colonoscopy follow up). A negative Cologuard test result does not guarantee the absence of CRC or advanced adenoma (pre-cancer). The current Cologuard screening interval is every 3 years. ([place] Cancer Society and U.S. Multi-Society Task Force). Cologuard performance data in a 10,000 patient pivotal study using colonoscopy as the reference method can be accessed at the following location: www.[employer]/results. Additional description of the Cologuard test process, warnings and precautions can be found at www.cologZattoord.com. Stool 01/28/2025 6:00 AM EDT 01/29/2025 10:49 AM EDT us Traci Miramontes DO [employer] SCIENCE - ORDERABLES F inal Result [address] [place] [address], [facility] [employer] [facility] [place] [address] * (ABNORMAL) LIPID PANEL REFLEX (01/23/2025 9:23 AM EDT) Cholesterol 156 <200 mg/dL 01/23/2025 5:24 PM EDT [facility] [employer] Comment: < 200 Desirable 200 - 239 Borderline High >= 240 High Triglyceride 156(H) <150 mg/dL 01/23/2025 5:24 PM EDT [facility] [email or web address], [facility] Comment: < 150 Normal 150 - 199 Borderline High 200 - 499 High >= 500 Very High HDL 54 >=40 mg/dL 01/23/2025 5:24 PM EDT [facility] [email or web address], [facility] Comment: > 60 Optimal 40 - 60 Acceptable < 40 Low LDL Calculated 75 <100 mg/dL 01/23/2025 5:24 PM EDT [facility] [email or web address], [facility] Comment: < 100 Optimal 100 - 129 Near or above optimal 130 - 159 Borderline High 160 - 189 High >= 190 Very High The National Institutes of Health (NIH) equation is used for all lipid panels that report calculated LDL (LDL-C). Non-HDL-C Calculated 102 <=129 mg/dL 01/23/2025 5:24 PM EDT [facility] [email or web address], [facility] Comment: <130 Desirable 130-159 Above Desirable 160-189 Borderline High 190-219 High >= 220 Very High Fasting Specimen? Yes None 025 5:24 PM EDT [facility] [employer] [facility] Blood VENOUS BLOOD / Unknown Venipuncture / Unknown 01/23/2025 9:23 AM EDT 01/23/2025 9:23 AM EDT Traci Miramontes DO CHEMISTRY ORDERABLES Final R esult [facility] [employer] [facility] [address] , [place] [address] * VITAMIN B12/ FOLIC ACID (01/23/2025 9:23 AM EDT) Pathologist [facility] Vitamin B12 1,024 232 - 1,245 pg/mL 01/23/2025 3:53 PM EDT [facility] [email or web address], [facility] Folate >16.00 >=4.80 ng/mL 01/23/2025 3:53 PM EDT [facility] [email or web address], [facility] Blood VENOUS BLOOD / Unknown Venipuncture / Unknown 01/23/2025 9:23 AM EDT 01/23/2025 9:23 AM EDT Narrative [facility] [employer] [facility] - 01/23/2025 3:53 PM EDT Ingestion of radha doses of biotin (>5 mg/day) taken within 8 hours of drawing blood sample can interfere with this immunoassay test. Traci Miramontes DO CHEMISTRY ORDERABLES Final R esult Performing Organization Address City/[facility]/ZIP Co de Phone Number [facility] [employer] [address] , [place] [address] * (ABNORMAL) VITAMIN D 25 HYDROXY (01/23/2025 9:23 AM EDT) Pathologist [facility] Vit D 25 OH 27.1(L) 30.0 - 150.0 ng/mL 01/23/2025 3:53 PM EDT [facility] [email or web address], [facility] Comment: Preferred: >= 30 ng/mL Insufficient: [...] ORDERABLES Final R esult Performing Organization Address [facility]/ZIP Co de Phone Number [facility] [employer] , [place] [address] * HEMOGLOBIN A1C (01/23/2025 9:23 AM EDT) Pathologist [facility] Hgb A1C 5.5 4.2 - 5.6 % 01/23/2025 4:42 PM EDT [facility] [email or web address], [facility] Est. Avg Glucose 111 mg/dL 01/23/2025 4:42 PM EDT [facility] [employer] [facility] Blood VENOUS BLOOD / Unknown Venipuncture / Unknown 01/23/2025 9:23 AM EDT 01/23/2025 9:23 AM EDT Narrative [facility] [employer] [facility] - 01/23/2025 4:42 PM EDT REFERENCE [...] ORDERABLES Final R esult [facility], [facility] [address] , [address] [place] [id number] * BASIC METABOLIC PANEL (01/23/2025 9:23 AM [...] recommended by the National Kidney Foundation - [place] [employer] of Nephrology Task Force. Blood VENOUS BLOOD / Unknown Venipuncture / Unknown 01/23/2025 9:23 AM EDT 01/23/2025 9:23 AM EDT Traci Miramontes DO CHEMISTRY ORDERABLES Final R esult [facility] [employer] [address] , [place] [address] * MM MAMMO DIGITAL SRAVANI SCREEN BILAT (08/07/2024 10:18 AM EDT) Anatomical Region Laterality Modality Breast Bilateral Mammography 08/07/2024 10:1 8 AM EDT Impressions 08/07/2024 10:35 AM EDT Negative ([id number]) RECOMMENDATION: Routine Screening Mammogram in 1 Year Bilateral No additional recommendation No additional laterality COMMENTS: Narrative 08/07/2024 10:35 AM EDT EXAM: MM MAMMO DIGITAL SRAVANI SCREEN BILAT EXAM DATE: 08/07/2024 10:18 AM INDICATION: Z12.31-Encounter for screening mammogram for malignant neoplasm of [id number] COMPARISON STUDIES: Compared with prior studies the most recent being 08/05/2021 and 08/09/2023. TISSUE DENSITY: There are scattered areas of fibroglandular density. FINDINGS: No mammographic evidence of malignancy. Procedure Note Katiana Julio MD - 08/07/2024 EXAM: MM MAMMO DIGITAL SRAVANI SCREEN BILAT EXAM DATE: 08/07/2024 10:18 AM INDICATION: Z12.31-Encounter for screening mammogram for malignantneoplasm of [id number] COMPARISON STUDIES: Compared with prior studies the most recent being08/05/2021 and 08/09/2023. TISSUE DENSITY: There are scattered areas of fibroglandular density. FINDINGS: No mammographic evidence of malignancy. IMPRESSION: Negative ([id number]) RECOMMENDATION: Routine Screening Mammogram in 1 Year Bilateral No additional recommendation No additional laterality COMMENTS: us Traci Miramontes DO IMG MAMMOGRAPHY ORDERABLES F inal Result from Last 3 Months or Most Recently Relevant to Health Maintenance Insurance ANTHEM PPO ANTHEM PPO * Guarantor: Pricilla Caba Account Type Relation to Patient Date of Phone Billing Address [place] Personal Family Self Care Teams It Corporate Recruiter Relationship Specialty Start Date End Date Tr[place] [address] PCP - General Family Medicine 12/21/23 Corrie Rodriguez MD Consulting Physician Obstetrics & Gynecology 01/09/20
--- OUTSIDE RECORDS SUMMARY | 2025-04-15 13:57 | XMS_ITS | Encounter Summary ---
Author Organization [place] [address] Care Team Providers Care Die Press Operator Name Role Phone Corrie Rodriguez MD Unavailable [facility] Traci Miramontes DO Primary Care Provider [phone] Reason for Visit * Reason Comments Medication Refill Encounter Details Date Type Department Care Team (Late st Contact Info) Description 03/06/2025 Refill [facility] [address] [place] [address] Traci Miramontes DO [address] [place] [address] Medication Refill Social History Tobacco Use Types [...] and sent to requesting pharmacy. Routed to [facility] if applicable. documented in this encounter Plan [...] documented as of this encounter Care Teams Die Press Operator Relationship Specialty Start Date End Date Traci Miramontes DO [employer] [place] [address] PCP - General Family Medicine 12/21/23 Corrie Rodriguze MD Consulting Physician Obstetrics & Gynecology 01/09/20 documented as of this encounter
[2025-04-16 05:21] LABS: Estradiol <5.0 pg/mL (.)
[2025-04-16 08:12] LABS: FSH 63.5 mIU/mL (.); LH 30.3 mIU/mL (.); Progesterone <0.1 ng/mL (.)
== END 2025-04-15 23:59 | disposition home or self-care (01) ==
LOC: LAB 13:55
PROVIDERS: PCP Student in an Organized Health Care Education/Training Program; Visit Provider Obstetrics & Gynecology
DX: N93.9 Abnormal uterine and vaginal bleeding, unspecified (principal); Z98.890 Other specified postprocedural states; N95.1 Menopausal and female climacteric states
CPT/HCPCS: 36415; 82670; 83001; 83002; 84144

== ENCOUNTER 2025-05-14 11:53 | Outpatient (CLI) | payer BC, SELFPAY ==
--- OUTSIDE RECORDS SUMMARY | 2025-05-14 11:56 | XMS_ITS | Encounter Summary ---
Author Organization [place] [address] Care Team Providers Care Nutrition Manager Name Role Phone Corrie Rodriguez MD Unavailable [facility] Traci Miramontes DO Primary Care Provider [phone] Reason for Visit * Reason Onset Date Comments Appointment Needed 02/25/2025 on and off pa in in lower right side x 2 days/ no bal Encounter Details Date Type Department Care Team (Late st Contact Info) Description 02/25/2025 Telephone [facility] [address] [place] [address] Traci Miramontes DO [address] [place] [address] Appointment Needed (on and off pain in [...] 12:22 PM EDT Oni Ovalle RN * [place] Suicide Severity Rating Scale (Q shift for [...] on filedocumented in this encounter Care Teams Nutrition Manager Relationship Specialty Start Date End Date Traci Miramontes DO [address] [place] [phone] PCP - General Family Medicine 12/21/23 Corrie Rodriguez MD Consulting Physician Obstetrics & Gynecology 01/09/20 documented as of this encounter
--- OUTSIDE RECORDS SUMMARY | 2025-05-14 11:56 | XMS_ITS | Clinical Summary ---
Author Organization [facility] [place] [facility] Address [address] [place] [address] Phone Care Team Providers Care Salsa Dance Instructor Name Role Phone Corrie Rodriguez MD Unavailable Traci Camacho DO Primary Care Provider [phone] Allergies No known active allergies Medications cetirizine [...] Type Department Care Team Description 03/06/2025 Refill SEP [place] [address] [address] [place] [phone] Traci Miramontes, DO Medication Refill 02/25/2025 12:29 PM EDT - 02/25/2025 1:47 PM EDT Emergency [facility] Emergency [address] [place] [address] Aakash Altman MD Acute cystitis without hematuria (Primary Dx); Loose stools Discharge Disposition: Home or Self Care 02/25/2025 Travel 02/25/2025 Telephone [place] [address] [address] [place] [phone] Traci Miramontes, Appointment Needed (on and off pain in lower right side x 2 days/ no bal) 02/21/2025 Abstract SEP [address] [place] [phone] Traci Miramontes, DO from Last 3 Months Immunizations Immunization Administration [...] of 1 - PCV) 2022 COVID-19 Vaccine (1 - 2023- season) 2024 Influenza Vaccine (#1) 2025 0, 07/20/2019, 08/01/2018, Additional history exists Annual Wellness [...] ideal body weight General 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 COMPARISON: 2015 PROCEDURE COMMENTS: Multidetector CT examination of the [...] of the ordering clinician. Aakash Altman MD [facility] [place] ORDERABLES Final Result * (ABNORMAL) CBC WITH DIFF (02/25/2025 12:45 PM EDT) WBC 10.6(H) 3.7 - 10.3 x10(3)/mcL 02/25/2025 12:52 PM EDT [facility] RBC 4.96 3.90 - 5.20 x10(6)/mcL 02/25/2025 12:52 PM EDT [facility] Hgb 14.4 11.2 - 15.7 g/dL 02/25/2025 12:52 PM EDT [facility] Hct 42.9 34.0 - 45.0 % 02/25/2025 12:52 PM EDT [facility] MCV 86.5 80.0 - 100.0 fL 02/25/2025 12:52 PM EDT [facility] MCH 29.0 26.0 - 34.0 pg 02/25/2025 12:52 PM EDT [facility] MCHC 33.6 30.7 - 35.5 g/dL 02/25/2025 12:52 PM EDT [facility] RDW 12.7 <=14.9 % 02/25/2025 12:52 PM EDT [facility] Platelet 256 155 - 369 x10(3)/mcL 02/25/2025 12:52 PM EDT [facility] MPV 9.1 8.8 - 12.5 fL 02/25/2025 12:52 PM EDT [facility] Neut Percent 58.0 % 02/25/2025 12:52 PM EDT [facility] Comment:Neutrophils equals s egs plus bands Imm Gran% 0.6 % 02/25/2025 12:52 PM EDT [facility] Comment:Automated count of m etamyelocytes, myelocytes and promyelocytes. Lymph Percent 29.2 % 02/25/2025 12:52 PM EDT [facility] [place] Percent 8.9 % 02/25/2025 12:52 PM EDT [facility] Eos Percent 2.4 % 02/25/2025 12:52 PM EDT [facility] Baso Percent 0.9 % 02/25/2025 12:52 PM EDT [facility] Neut # 6.2(H) 1.6 - 6.1 x10(3)/mcL 02/25/2025 12:52 PM EDT [facility] Comment:Neutrophils equals s egs plus bands IMMGRAN# 0.1 0.0 - 0.1 x10(3)/mcL 02/25/2025 12:52 PM EDT [facility] Comment:Automated count of m etamyelocytes, myelocytes and promyelocytes. An absolute IG <0.1 is reported as 0.0. Lymph # 3.1 1.2 - 3.9 x10(3)/mcL 02/25/2025 12:52 PM EDT [facility] [place] # 0.9 0.3 - 0.9 x10(3)/mcL 02/25/2025 12:52 PM EDT [facility] Eos# 0.3 0.0 - 0.5 x10(3)/mcL 02/25/2025 12:52 PM EDT [facility] Baso # 0.1 0.0 - 0.1 x10(3)/mcL 02/25/2025 12:52 PM EDT [facility] Blood VENOUS BLOOD / Unknown Venipuncture / Unknown 02/25/2025 12:45 PM EDT 02/25/2025 12:50 PM EDT Aakash Altman MD HEMATOLOGY ORDERABLES Final Res ult Performing Organization Address [facility] Co de Phone Number [facility] [address] [place] [address] * HUMAN CHORIONIC GONADOTROPIN QUANTITATIVE (02/25/2025 12:45 PM EDT) [facility] Hcg Quant <1 <5 mIU/mL 02/25/2025 1:07 PM EDT [facility] Blood VENOUS BLOOD / Unknown Venipuncture / Unknown 02/25/2025 12:45 PM EDT 02/25/2025 12:50 PM EDT Narrative [facility] - 02/25/2025 1:07 PM [...] ORDERABLES Final Resu lt Performing Organization Address [facility] Co de Phone Number [facility] [address] [place] [address] * COMPREHENSIVE METABOLIC PANEL (02/25/2025 12:45 PM EDT) [facility] Sodium 140 136 - 145 mmol/L 02/25/2025 1:07 PM [facility] Potassium 4.0 3.5 - 5.0 mmol/L 02/25/2025 1:07 PM [facility] Chloride 105 98 - 107 mmol/L 02/25/2025 1:07 PM [facility] Total CO2 24 22 - 29 mmol/L 02/25/2025 1:07 PM [facility] Anion Gap 11 7 - 16 mmol/L 02/25/2025 1:07 PM [facility] Calcium 9.7 8.6 - 10.4 mg/dL 02/25/2025 1:07 PM [facility] Glucose Lvl 89 70 - 99 mg/dL 02/25/2025 1:07 PM [facility] BUN 13 6 - 20 mg/dL 02/25/2025 1:07 PM [facility] Creatinine 0.66 0.51 - 1.30 mg/dL 02/25/2025 1:07 PM [facility] Albumin 4.7 3.5 - 5.2 gm/dL 02/25/2025 1:07 PM [facility] Total Protein 7.4 6.4 - 8.3 gm/dL 02/25/2025 1:07 PM [facility] Bili Total 0.4 0.2 - 1.3 mg/dL 02/25/2025 1:07 PM [facility] ALT 31 <=41 U/L 02/25/2025 1:07 PM [facility] AST 23 <=40 U/L 02/25/2025 1:07 PM [facility] Alk Phos 55 36 - 123 U/L 02/25/2025 1:07 PM [facility] eGFR (CKD-EPIcr 2020) 105 >=60 mL/min/1.7 3 m2 02/25/2025 1:07 PM [facility] Comment:Estimated GFR was ca lculated using the CKD-EPIcr (2020) equation refit without race. The equation is recommended by the National Kidney Foundation - [employer] Society of Nephrology Task Force. Blood VENOUS BLOOD / Unknown Venipuncture / Unknown 02/25/2025 12:45 PM EDT 02/25/2025 12:50 PM EDT us Aakash Altman MD CHEMISTRY ORDERABLES Final Resu lt [facility] [address] [place] [address] * (ABNORMAL) URINALYSIS REFLEX (02/25/2025 12:31 PM EDT) UA Color Yellow 02/25/2025 12:44 PM EDT [facility] UA Appear Clear Clear 02/25/2025 12:44 PM EDT [facility] UA Glucose Negative Negative mg/dL 02/25/2025 12:44 PM EDT [facility] UA Ketones Negative Negative mg/dL 02/25/2025 12:44 PM EDT [facility] UA Blood Negative Negative 02/25/2025 12:44 PM EDT [facility] UA pH 6.5 5.0 - 8.0 pH 02/25/2025 12:44 PM EDT [facility] UA Protein Negative Negative mg/dL 02/25/2025 12:44 PM EDT [facility] UA Urobilinogen 0.2 <=1 mg/dL 12:44 PM EDT [facility] UA Bili Negative Negative 02/25/2025 12:44 PM EDT [facility] UA Nitrite Negative Negative 02/25/2025 12:44 PM EDT [facility] UA Leuk Est Moderate(A) Negative 02/25/2025 12:44 PM EDT [facility] UA Spec Grav <=1.005 1.001 - 1.035 no units 02/25/2025 12:44 PM EDT [facility] Comment:Reference range meghan d for random specimens only. UA WBC 10(H) 0 - 4 /HPF 02/25/2025 12:44 PM EDT [facility] UA Squam Epi 1+ /LPF 02/25/2025 12:44 PM EDT [facility] UA Bacteria Trace(A) Negative /HPF 02/25/2025 12:44 PM EDT [facility] Urine STRUCTURE OF URINARY TRACT PROPER / Unknown 02/25/2025 12:31 PM EDT 02/25/2025 12:35 PM EDT Aakash Altman MD URINE ORDERABLES Final Result Performing Organization Address [facility] Co de Phone Number [facility] [address] [place] [address] * EXTRA HENLEY URINE CX (02/25/2025 12:31 PM EDT) Urine STRUCTURE OF URINARY TRACT PROPER / Unknown 02/25/2025 12:31 PM EDT 02/25/2025 12:35 PM EDT Aakash Altman MD MICROBIOLOGY - GENERAL ORDERABL ES Final Result Performing Organization Address [facility] de Phone Number [address] [address] * URINE CULTURE (NO STAIN) (02/25/2025 12:31 PM EDT) Culture Multiple bacterial species isolated from urine consistent with urogenital commensal organisms. 02/27/2025 4:17 AM EDT PREFERRED L-3 [facility] Urine STRUCTURE OF URINARY TRACT PROPER / Unknown 02/25/2025 12:31 PM EDT 02/25/2025 12:44 PM EDT Aakash Altman MD MICROBIOLOGY - GENERAL ORDERABL ES Final Result Performing Organization Address City/[facility] Co de Phone Number [employer] [address] [facility] , [place] [address] * HM HPV (02/19/2025) HPV DNA None Detected None Detected SEP OFFICE 02/19/2025 Historical Provider HEALTH MAINTENANCE Final Res ult SEP OFFICE * HM PAP SMEAR (02/19/2025) Pap Negative for intraephithelial lesion or malignancy Negative for intraephithelial lesion or malignancy, Other SEP OFFICE 02/19/2025 Historical Provider HEALTH MAINTENANCE Final Res ult SEP OFFICE * COLOGUARD (01/28/2025 6:00 AM EDT) COLOGUARD CLINICAL REPORT Negative Negative [facility] Comment: The Cologuard (TM) test [...] screened with both Cologuard and colonoscopy. (Yaneli Lau al, N Engl J Med 2014;370(14):3208-7929) The normal value (reference range) for this assay is negative. COLOGUARD RE-SCREENING RECOMMENDATION: Periodic colorectal cancer screening is an important part of preventive healthcare for asymptomatic individuals at average risk for colorectal cancer. Following a negative Cologuard result, the [place] Cancer Society and U.S. Multi-Society Task Force screening guidelines recommend a Cologuard re-screening interval of 3 years. References: [place] Cancer Society Guideline for Colorectal Cancer Screening: https://www.cancer.org/cancer/bypij-xvsfgd-jbtgpd/egdlyhweq-ouwszyufg-zwltntp/ac s-rec ommendations.html.; Chano DK, Rica CR, Chris FranzK, Colorectal Cancer Screening: Recommendations for Physicians and Patients from the U.S. Multi-Society Task Force on Colorectal Cancer Screening , Am J Gastroenterology 2017; 112:4953-4766. TEST DESCRIPTION: Composite algorithmic analysis of stool [...] screened with both Cologuard and colonoscopy. (Yaneli Lau al, N Engl J Med 2014;370(14):7270-7160.) Cologuard may produce a false negative or false positive result (no colorectal cancer or precancerous polyp present at colonoscopy follow up). A negative Cologuard test result does not guarantee the absence of CRC or advanced adenoma (pre-cancer). The current Cologuard screening interval is every 3 years. ([place] Cancer Society and U.S. Multi-Society Task Force). Cologuard performance data in a 10,000 patient pivotal study using colonoscopy as the reference method can be accessed at the following location: www.[employer]Tree/results. Additional description of the Cologuard test process, warnings and precautions can be found at www.CorkCRMrd.com. Stool 01/28/2025 6:00 AM EDT 01/29/2025 10:49 AM EDT Traci Miramontes DO [facility] - ORDERABLES F inal Result [employer] [address] [place] [address], [facility] [employer] [place] [address] * MM MAMMO DIGITAL SRAVANI SCREEN BILAT (08/07/2024 10:18 AM EDT) Anatomical Region Laterality Modality Breast Bilateral Mammography 08/07/2024 10:1 8 AM EDT Impressions 08/07/2024 10:35 AM EDT Negative ([id number]-Gqashvly-7) RECOMMENDATION: Routine Screening Mammogram in 1 Year Bilateral No additional recommendation No additional laterality COMMENTS: Narrative 08/07/2024 10:35 AM EDT EXAM: MM MAMMO DIGITAL SRAVANI SCREEN BILAT EXAM DATE: 08/07/2024 10:18 AM INDICATION: Z12.31-Encounter for screening mammogram for malignant neoplasm of [id number] COMPARISON STUDIES: Compared with prior studies the most recent being 08/05/2021 and 08/09/2023. TISSUE DENSITY: There are scattered areas of fibroglandular density. FINDINGS: No mammographic evidence of malignancy. Procedure Note Katiana Julio MD - 08/07/2024 EXAM: MM MAMMO DIGITAL SRAVANI SCREEN BILAT EXAM DATE: 08/07/2024 10:18 AM INDICATION: Z12.31-Encounter for screening mammogram for malignantneoplasm of [id number] COMPARISON STUDIES: Compared with prior studies the most recent being08/05/2021 and 08/09/2023. TISSUE DENSITY: There are scattered areas of fibroglandular density. FINDINGS: No mammographic evidence of malignancy. IMPRESSION: Negative (GAC-Hdraskth-3) RECOMMENDATION: Routine Screening Mammogram in 1 Year Bilateral No additional recommendation No additional laterality COMMENTS: Traci Miramontes DO IMG MAMMOGRAPHY ORDERABLES F inal Result from Last 3 Months or Most Recently Relevant to Health Maintenance Insurance ANTHEM PPO ANTH PPO * Guarantor: Pricilla Caba Account Type Relation to Patient Date of Phone Billing Address [place] Personal Family Self Care Teams Salsa Dance Instructor Relationship Specialty Start Date End Date Traci Miramontes DO [address] [place] [address] PCP - General Family Medicine 12/21/23 Corrie Rodriguez MD Consulting Physician Obstetrics & Gynecology 01/09/20
--- OUTSIDE RECORDS SUMMARY | 2025-05-14 11:56 | XMS_ITS | Encounter Summary ---
Author [place] [address] Care Team Providers Care Senior Health Physics Technician Name Role Phone Corrie Rodriguez MD Unavailable Traci Camacho DO Primary Care Provider [phone] Encounter Details Date Type Department Care Team (Late st Contact Info) Description 02/01/2025 Results Follow-Up SEP Denise [address] [place] [address] Alexus Cazares MA LIPID PANEL REFLEX, [...] 12:22 PM EDT Oni Ovalle RN * [place] Suicide Severity Rating Scale (Q shift for [...] results received, patient notified by: Contacted by [employer] message documented in this encounter Plan of Treatment Not on file documented as of this encounter Goals Goal Patient Goal Type Associated Problems Recent Progress Patient-Stated? 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, RN documented as of this encounter Visit Diagnoses Not on filedocumented in this encounter Care Teams Senior Health Physics Technician Relationship Specialty Start Date End Date Traci Miramontes DO [address] [place] [address] PCP - General Family Medicine 12/21/23 Corrie Rodriguez MD Consulting Physician Obstetrics & Gynecology 01/09/20 documented as of this encounter
[2025-05-14 12:11] VITALS: BMI 34.1
--- NOTE | 2025-05-14 12:34 | ECG_ITS ---
APPROVED REPORT Exam: Resting ECG HR:62 bpm ECG Measurements Heart Rate 62 AXES PA 183 P 89 QRSd 88 QRS 6 QT 406 T 41 QTc 411 Conclusion SINUS RHYTHM NORMAL ECG UNCONFIRMED REPORT Electronically signed by : Gregorio Chatman MD 05/15/2025 07:55:35
[2025-05-14 12:47] LABS: Hematocrit 44.4 % (37.0-47.0); Hemoglobin 14.8 g/dL (12.2-16.2); Immature Granulocytes % 0.3 %; Mean Corpuscular HGB Conc 33.3 g/dL (31.8-35.4); Mean Corpuscular Hemoglobin 29.4 pg (27.0-31.2); Mean Corpuscular Volume 88.1 fl (81-99); Nucleated Red Blood Cells % 0 %; Platelet Count 240 K/mm3 (142-424); Red Blood Count 5.04 M/mm3 (4.20-5.40); Red Cell Distribution Width-SD 38.9 fL; White Blood Count 8.9 K/mm3 (4.8-10.8)
[2025-05-14 13:02] LABS: Chloride 102 mmol/L (98-107); Sodium 139 mmol/L (136-145)
[2025-05-14 13:03] LABS: Potassium 4.2 mmoL/L (3.5-5.1)
[2025-05-14 13:06] LABS: Anion Gap 11.2 mEq/L (5-15); Blood Urea Nitrogen 16 mg/dl (7-17); Calcium 10.0 mg/dl (8.4-10.2); Carbon Dioxide 30 mmol/L (22.0-30.0); Creatinine Clearance Estimated 147 mL/min (50-200); Creatinine,Serum 0.70 mg/dl (0.52-1.04); Estimated Glomerular Filt Rate 88 ml/min (>60); GFR (African American) 106 ML/MIN (>60); Glucose 100 mg/dl (74-100)
[2025-05-14 13:35] LABS: HCG Qualitative, Serum Negative (Negative)
== END 2025-05-14 23:59 | disposition home or self-care (01) ==
LOC: PREOP 11:54
PROVIDERS: PCP Student in an Organized Health Care Education/Training Program; Visit Provider Obstetrics & Gynecology
DX: Z01.810 Encounter for preprocedural cardiovascular examination (principal); Z01.812 Encounter for preprocedural laboratory examination
CPT/HCPCS: 80048; 84703; 85025; 93005

== ENCOUNTER 2025-05-17 07:20 | Day surgery (SDC) | payer BC, SELFPAY ==
[2025-05-14 13:43] VITALS: BMI 34.1
[2025-05-17] VITALS (9 sets, daily range): BP systolic 143–175; BP diastolic 75–104; PULSE 65–76; RESP 14–18; TEMP 36.2–36.9; O2SAT 92–99
[2025-05-17] MEDS: LACTATED RINGERS 1000ML 1,000 ML 25 ML IV (08:05)
[2025-05-17] MEDS: ACETAMINOPHEN 500MG TAB 1000 MG PO (08:06)
--- NOTE | 2025-05-17 08:33 | P.PNANES_ITS ---
[facility] Disclaimer: The information contained in this section may have been updated after the patient was seen, as this information can be updated by other users. Medical History Postmenopausal bleeding Menopausal symptoms Abnormal uterine bleeding NINA (stress urinary incontinence, female) High cholesterol Severe dysmenorrhea Surgical History History of endometrial ablation History of salpingectomy H/O section History of tubal ligation H/O LEEP 1997 Family History Other Cancer Diabetes Hyperlipidemia Hypertension Stroke Social History Smoking Status: Never smoker alcohol intake: never substance use type: denies use current occupational status: unemployed Travel in the last 8 weeks?: None household members: spouse housing: house caffeine: Yes Have you lived/traveled outside US in past 30 days?: No Contact w/someone who lives/traveled outside US past 30 days?: No Exposure to someone with infectious disease in past 14 days?: No Do you have a fever (greater than 100.4 F or 38 C)?: No Have you tested positive for COVID-19?: No Exposed to someone with COVID-19 in past 14 days?: No Do you have a sore throat?: No Do you have a cough?: No Do you have any weakness?: No Do you have any diarrhea?: No Are you experiencing any unusual bleeding?: No Do you have any muscle aches/pain?: No Do you have any abdominal pain?: No Are you experiencing loss of taste or smell?: No [facility] Anesthesia Checklist Patient Identification Patient Identification: Arm Band and Verbal (Name & ) Structural Data Admitted From: Home Planned Operative Procedure/s: D&C, possible myosure Consent for Planned Operative Procedure(s) Verified: Yes Verified Documents: Surgical Consent NPO Status Verified Time NPO: 00:00 Chart Verification Results Verified: ECG Additional verifications Anesthesia Reactions: No Hx Blood Transfusions: No Blood Transfusion Reaction: No Airway Assessment Mallampati Score:: Class II C-Spine Mobility Assessed: Yes TMJ Mobility Assessed: Yes Dentition: Good Dentition Neurological Assessment Level of Consciousness: Awake and Appropriate Hx Seizures: No Numbness or tingling in extremities: No Anesthesia Plan Anesthesia Risk discussed: Yes Anesthesia Plan: Verified ASA Class: II Anesthesia Type: General
[2025-05-17] MEDS: VASOPRESSIN 20 UNITS/ML VIAL 10 UNIT IM (09:28)
--- NOTE | 2025-05-17 09:47 | EXP.ANES.I ---
[facility] Anesthesia Record Part I Anesthesia Record I Intake, IV Amount: 1,000 Hydration: Adequate Estimated blood loss (mL): 0 Urine output (mL): 0 Blood Pressure: 161/104 SaO2: 94 Pulse Rate: 75 Airway Patency: Patent Respiratory Rate: 14 Temperature: 98 F Patient is:: Awake and Stable Stable to PACU at:: 09:45
--- NOTE | 2025-05-17 10:08 | P.OP_ITS ---
Date of procedure: 05/17/25 Pre-op Diagnosis:: 1. Postmenopausal bleeding 2. S/p endometrial ablation Post-op Diagnosis:: 1. Postmenopausal bleeding 2. S/p endometrial ablation 3. Cervical stenosis 4. Stage 2 cystocele Procedure performed:: 1. Exam under anesthesia 2. Cervical dilation, unsuccessful curettage Surgeon:: Helen Horne DO Database Support(s):: N/a ABORIGINAL CEREMONIAL CELEBRANT:: Charly Power Anesthesia: GETA Estimated blood loss (mL): 2 Clinical Note:: Mrs Pricilla Carlin is a 54 yo P2010 who presents to [facility] for scheduled procedure. She complains of bleeding after endometrial ablation. History of endometrial ablation 11/03/23 for abnormal uterine bleeding. She had one period November 2023 and then nothing until March 2025. She states she had a 3 day period, light flow. It felt exactly like a period. She admits to hot flashes, night sweats, joint pain and irritability. Pelvic ultrasound 04/12/25 demonstrated anteverted uterus normal in shape and size. There are 2 fibroids seen measuring 1.4 cm and 1.8 cm. The endometrium measures 5.3 mm. 2. Both ovaries are seen and appear normal. The left ovary is more difficult to visualize. 3. No fluid in the cul-de-sac. Estradiol < 5.0, FSH 63.5, LH 30.3 and progesterone <0.1. Operative findings:: 1. On bimanual exam, stage 2 cystocele appreciated in dorsal lithotomy position. Cervix appeared grossly normal. Uterus normal size and shape, midposition. No adnexal masses palpated 2. Cervical stenosis noted at internal os most likely secondary to prior endometrial ablation. Dilute vasopressin injected at 2 o'clock, 5 o'clock, 8 o'clock and 10 o'clock helped with dilation of internal cervical os. Uterus sounded to 7. However, currettage was performed without producing a specimen. Cavity during curettage felt scarred. Operative note:: Risks, benefits and alternatives were discussed with the patient. Risks include but are not limited to bleeding, infection, uterine perforation and VTE. Patient voiced understanding and agreed to proceed. She was wheeled back to the operating room and placed under general anesthesia without difficulty. She was placed in dorsal lithotomy position and prepped and draped in the normal sterile fashion. Straight catheter was used to drain the bladder. A bimanual exam was performed. See findings above. A weighted Auvard was placed in the vaginal vault. Single tooth tenaculum was placed on anterior lip of the cervix. Sequential Larry dilators were used to dilate the cervical os. Uterine sound reach 4-5. 10 cc of dilute vasopressin was injected at 2 o'clock, 5 o'clock, 8 o'clock and 10 o'clock. Larry dilators were used to dilate the internal os. Uterine sound performed and measured 7. The endometrial cavity was curetted with a systematic [id number] movement of the curette. Cavity felt stenotic and no tissue was obtained with curette.?Tenaculum site was noted to oozing. Silver nitrate stick x 1 was applied. Hemostasis was noted. Patient was awaken from anesthesia without difficulty. She was transported to recovery room in stable condition. Patient will be discharged home when awake and ambulating. She was given postop instructions as well as instructions to follow-up in the office in 2 weeks. Discussed exam findings including cystocele with her . Condition: stable Disposition: same day Specimens:: N/a Complications:: None
--- NOTE | 2025-05-20 11:36 | EXP.ANES.II ---
[facility] Anesthesia Record Part II Anesthesia Record Part II Discharge Time: 10:15 Destination: Surgical Day Care (OP Surgery) PACU nurse assessment reviewed?: Yes Patient Condition:: Good Anesthesia Complications:: None Swallowing reflex intact?: Yes Airway Patency: Patent Cyanosis?: No Blood Pressure: 172/84 SaO2: 98 Respiratory Rate: 18 Pulse Rate: 69 Temperature: 98.4 F Mental Status: Alert & Oriented Pain level:: 4 Nausea and/or vomitting:: None Intake, IV Amount: 0 Hydration: Adequate
[2025-05-20 11:37] VITALS: BP 172/84; PULSE 69; RESP 18; TEMP 36.9; O2SAT 98
== END 2025-05-17 10:46 | disposition home or self-care (01) ==
PROVIDERS: PCP Student in an Organized Health Care Education/Training Program; Visit Provider Obstetrics & Gynecology
PROC: 0UDB8ZZ Extraction of Endometrium, Via Natural or Artificial Opening Endoscopic (ICD-10-PCS; CPT 58558; principal; 2025-05-17 09:00)
DX: N95.0 Postmenopausal bleeding (principal); N88.2 Stricture and stenosis of cervix uteri; N81.10 Cystocele, unspecified
CPT/HCPCS: 57800; J1100; J2003; J2250; J2598; J2704; J3010; J7120